=== PATIENT | male | born 1985 | race Caucasian/White ===

== ENCOUNTER 2019-11-25 00:29 | Emergency (ER) | payer MEDICAID, SELFPAY ==
[2019-11-25 00:30] VITALS: BP 159/102; PULSE 120; RESP 25; TEMP 36.9; O2SAT 98; BMI 25.6
--- NOTE | 2019-11-25 00:40 | ED.DCSUM_ITS ---
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 EMS was called. They did bag the patient and gave 2 doses of Narcan and patient woke up. Initially he refused transport but was unable to make a call due to his altered mental status and suspected narcotic overdose. The patient denies taking any narcotics. He denies any symptoms currently other than being thirsty. He denies any past medical history. Past Medical History - Allergies and Home Meds Allergies/Adverse Reactions: Allergies No Known Allergies Allergy (Verified 11/25/19 00:29) Primary Care Physician: Neville Webb MD [Primary Care Provider] - Prior records reviewed: Yes Past Medical History: None Surgical History: cholecystectomy Lives: With Family Smoking Status: Current every day smoker Alcohol: None Drugs: - - Patient denies but suspected narcotics Review of Systems General: Denies: Chills, Fever, Sweats Eyes: Denies: Visual changes - bilaterally, Diplopia ENT: Denies: Rhinorrhea, Sore throat Cardiovascular: Denies: Chest pain, Palpitations Respiratory: Denies: Dyspnea, Cough, Dyspnea on exertion Gastrointestinal: Denies: Abdominal pain, Nausea, Vomiting, Diarrhea, Melena, Hematochezia Genitourinary: Denies: Dysuria, Hematuria, Frequency Musculoskeletal: Denies: Back pain, Extremity Pain Skin: Denies: Rash, Wounds Neurological: Denies: Headache, Weakness, Numbness Physical Exam Vital Signs/Narrative: Vital Signs Temp Pulse Resp BP Pulse Ox 11/25/19 00:30 98.5 F 120 H 25 H 159/102 H 98 General: Well nourished, Well developed, No Acute Distress Head: Normocephalic, Atraumatic Eyes: Perrl, EOMI ENT: Moist mucous membranes, No rhinorrhea Neck: Supple, Nontender Cardiovascular: Regular rate, No murmurs, Tachycardia Respiratory: No distress, CTA bilaterally, Chest nontender Abdomen: Soft, Nontender, Nondistended, Normal bowel sounds Back: Nontender, Normal Inspection Extremities: Nontender, No edema Skin: Normal color, No rash Neurological: Alert, Oriented x3, Cranial nerves II-XII grossly intact, Normal Strength, Normal Sensation Psychological: Normal affect, Normal Mood Diagnostic/Tx/Re-eval - Medical Decision Making Monitored in the emergency department. I suspect he has a narcotic overdose. He resolved with Narcan. Patient was monitored for over an hour. He does not want to go to rehab. He has a history of narcotic use in the past. Family is at the bedside and he would like to be discharged. ED Disposition - Plan for ED Patient: Disposition: Home or Assisted Living Diagnosis: Narcotic overdose Instructions: OVERDOSE, Accidental (Adult), OVERDOSE, Opiate Referrals: Neville Webb MD [Primary Care Provider] -
[2019-11-25 01:38] VITALS: BP 140/105; PULSE 115; RESP 17; O2SAT 100
[2019-11-25 01:47] VITALS: BP 144/106; PULSE 115; RESP 15; O2SAT 99
== END 2019-11-25 01:51 | disposition home or self-care (01) ==
PROVIDERS: Emergency Provider Emergency Medicine; Family Provider Family Medicine; PCP Family Medicine
DX: T40.601A Poisoning by unspecified narcotics, accidental (unintentional), initial encounter (principal); Y92.9 Unspecified place or not applicable; F17.200 Nicotine dependence, unspecified, uncomplicated
CPT/HCPCS: 99284; J7030

== ENCOUNTER 2020-08-23 15:05 | Emergency (ER) | payer MEDICAID, SELFPAY ==
[2020-08-23 15:06] VITALS: BP 148/100; PULSE 84; RESP 14; TEMP 36.6; O2SAT 100; BMI 24.0
--- NOTE | 2020-08-23 16:31 | ED.VIS.GEN ---
History of Present Illness Chief Complaint: Abn Labs Informant: Patient, Family Onset: Days - 2 Narrative: Patient presents with family here for evaluation of jaundice noted 2 days ago. Denies abdominal pain nausea vomiting. 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 He does share needles. Denies fever. Urine is darker in color. Denies any landa stools. No previous similar symptoms. Asthma history of cholecystectomy. Prior similar symptoms: No Past Medical History - Allergies and Home Meds Allergies/Adverse Reactions: Allergies No Known Allergies Allergy (Verified 11/25/19 00:29) Primary Care Physician: Neville Webb MD [STAFF PHYSICIAN] - Past Medical History: - - IV drug abuse Surgical History: cholecystectomy Smoking Status: Current every day smoker Review of Systems General: Denies: Chills, Fever, Sweats Eyes: Denies: Visual changes - bilaterally, Diplopia ENT: Denies: Rhinorrhea, Sore throat Cardiovascular: Denies: Chest pain, Palpitations Respiratory: Denies: Dyspnea, Cough, Dyspnea on exertion Gastrointestinal: Denies: Abdominal pain, Nausea, Vomiting, Diarrhea, Melena, Hematochezia Genitourinary: Denies: Dysuria, Hematuria, Frequency Musculoskeletal: Denies: Back pain, Extremity Pain Skin: Reports: - - Jaundice. Denies: Rash, Wounds Neurological: Denies: Headache, Weakness, Numbness Physical Exam Vital Signs/Narrative: Vital Signs Temp Pulse Resp BP Pulse Ox 08/23/20 15:06 97.9 F 84 14 148/100 H 100 Inital Vital Signs reviewed: Yes General: Well nourished, Well developed, No Acute Distress Head: Normocephalic, Atraumatic Eyes: Perrl, EOMI, Scleral icterus ENT: Moist mucous membranes, No rhinorrhea Neck: Supple, Nontender Cardiovascular: Regular rate, Regular rhythm, No murmurs Respiratory: No distress, CTA bilaterally, Chest nontender Abdomen: Soft, Nontender, Nondistended, Normal bowel sounds. Negative for: Aparicio's sign Back: Nontender, Normal Inspection Extremities: Nontender, No edema Skin: No rash, Jaundice Neurological: Alert, Oriented x3, Cranial nerves II-XII grossly intact, Normal Strength, Normal Sensation Psychological: Normal affect, Normal Mood Diagnostic/Tx/Re-eval Clinical Impression(s) from Imaging Studies Abdomen Ultrasound 09/28/20 17:19 IMPRESSION: Enlarged fatty liver. Status post cholecystectomy. Dilated main portal vein. Trace perihepatic fluid. Electronically Signed: Jamie Jimenez DO at 18:55 EDT Tel [phone], Service support , Abnormal Lab Results 08/23/20 08/23/20 08/23/20 16:35 16:35 16:35 WBC 8.0 RBC 3.95 L Hgb 11.9 L Hct 34.9 L MCV 88.4 MCH 30.1 MCHC 34.1 RDW Std Deviation 58.1 H RDW Coeff of Marilynn 18.2 H Plt Count 366 MPV 11.2 Immature Gran % (Auto) 0.300 Neut % (Auto) 60.4 Lymph % (Auto) 22.8 [place] % (Auto) 14.5 H Eos % (Auto) 1.1 Baso % (Auto) 0.9 Absolute Neuts (auto) 4.8 Absolute Lymphs (auto) 1.82 Nucleated RBC % 0 PT 14.0 INR 1.1 Sodium 140 Potassium 3.8 Chloride 107 Carbon Dioxide 27.0 Anion Gap 6 BUN 11 Creatinine 0.94 Estim Creat Clear Calc 132.34 Est GFR (MDRD) Af Amer 118 Est GFR (MDRD) Non-Af 97 BUN/Creatinine Ratio 11.7 Glucose 101 Calcium 8.6 Total Bilirubin 12.90 H Direct Bilirubin 10.52 H AST 930 H ALT 1066 H Alkaline Phosphatase 350 H Total Protein 7.0 Albumin 2.8 L Globulin 4.2 Lipase 79 - Medical Decision Making Patient vital stable currently asymptomatic with symptoms he does have clinical jaundice symptoms. With his history concerns for hepatitis B or C with his IV drug history. I did check labs notes acute hepatitis with hyperbilirubinemia. Ultrasound of the liver obtained. There is no masses. Mild fatty liver. Trace perihepatic fluid, dilated main portal vein per radiology. Reevaluation patient updated on findings. Discussed cysts hepatitis panel is pending. Discussed he needs to call his PCP close follow-up for referral as needed. Discussed detox with the patient with sister in the room, he states he is not ready for this he is established with a 180 program. Strict signs and symptoms discussed to return. All questions were answered. ED Disposition - Plan for ED Patient: Disposition: Home or Assisted Living Diagnosis: Acute hepatitis, Hyperbilirubinemia, IV drug user Instructions: ED Hepatitis Viral Type Pending, Total Bilirubin Blood Referrals: Aylin Olson, PA [Primary Care Provider] - 3-5 Days
[2020-08-23 17:01] LABS: Absolute Lymphocyte Count 1.82 X10^3/uL (0.83-4.51); Absolute Neutrophil Count 4.8 X10^3/uL (2.0-7.7); Basophil# 0.07 X10^3/uL; Basophil% 0.9 % (0-1); Eosinophil# 0.09 X10^3/uL; Eosinophils% 1.1 % (0-5); Hematocrit 34.9 % (40-54); Hemoglobin 11.9 g/dL (13.0-16.5); Lymphocyte # 1.82 X10^3/ul (4.0); Lymphocyte % 22.8 % (19-41); Mean Corp Hgb Conc 34.1 g/dL (32-36); Mean Corpuscular Hgb 30.1 pg (27.0-32.0); Mean Corpuscular Volume 88.4 fL (80-94); Mean Platelet Vol. 11.2 fl (6.2-12.0); Monocyte# 1.16 X10^3/uL; Monocyte% 14.5 % (0-10); NRBC Flagged by Analyzer 0 % (0-5); Neutrophil # 4.83 X10^3/uL (2.7-7.7); Neutrophil % 60.4 % (47-70); Platelet Count 366 K/mm3 (150-450); RBC Distribution Width CV 18.2 % (11.6-14.6); RBC Distribution Width SD 58.1 fl (35.1-43.9); Red Blood Count 3.95 M/mm3 (4.6-6.2)
[2020-08-23 17:18] LABS: International Normalized Ratio 1.1
--- NOTE | 2020-08-23 17:19 | US_ITS ---
STUDY: ABDOMINAL ULTRASOUND - RIGHT UPPER QUADRANT REASON FOR VISIT: Male, 34 years old JAUNDICE X SEVERAL DAYS, HX OF CHOLECYSTECTOMY TECHNIQUE: Ultrasound evaluation of the right upper quadrant was performed with real-time and static landa-scale imaging. TECHNICAL QUALITY: Adequate. COMPARISON: None. FINDINGS: Liver: The liver measures 20.4 cm. There is fatty echogenicity of the liver. The bile ducts are within normal limits. There is hepatic color flow. The direction of portal flow is hepatopetal. There is no demonstrated mass lesion. Dilated main portal vein measuring 17 mm. Gallbladder: Status post cholecystectomy. Common Bile Duct (C.B.D.): The common bile duct is 3 mm. Pancreas: Limited visualization of the pancreas. Right Kidney: Normal size of the right kidney. The right kidney measures 12.4 x 6.0 x 4.7 cm. Normal renal cortex. The right cortex measures 1.0 cm. There is no demonstrated renal mass or cyst. There is no right hydronephrosis. Trace perihepatic fluid. US/Abdomen Limited IMPRESSION: Enlarged fatty liver. Status post cholecystectomy. Dilated main portal vein. Trace perihepatic fluid. Electronically Signed: Jamie Jimenez DO at 18:55 EDT Tel [phone], Service support ,
[2020-08-23 17:35] LABS: AST(SGOT) 930 U/L (15-37); Alanine Aminotransfer ALT/SGPT 1066 U/L (16-61); Albumin, Serum 2.8 g/dL (3.2-5.0); Alkaline Phosphatase 350 U/L (45-117); Anion Gap 6 (5-15); BUN 11 mg/dL (7-18); BUN/Creat Ratio 11.7 RATIO (10-20); Bilirubin, Direct 10.52 mg/dL (0.00-0.30); Calcium,Total 8.6 mg/dL (8.5-10.1); Chloride 107 mmol/L (98-107); Creatinine, Serum 0.94 mg/dL (0.70-1.30); EST Glomerular Filtration Rate 97 mL/min (>60); Est Glom Filt Rate - Afr Amer 118 mL/min (>60); Estimated Creatinine Clearance 132.34 ml/min; Globulin 4.2 g/dL (2.2-4.2); Glucose 101 mg/dL (74-106); Lipase 79 U/L (73-393); Potassium 3.8 mmol/L (3.5-5.1); Sodium Level 140 mmol/L (136-145)
[2020-08-23 18:38] VITALS: BP 140/95; PULSE 83; RESP 12; O2SAT 100
--- NOTE | 2020-08-23 19:58 | ED.RN ---
THIS NURSE WENT TO D/C THE PT AND HE WAS NOT IN THE ROOM OR IN THE DEPARTMENT. NO IV LAYING IN ROOM ANYWHERE. WILL CALL THE PT AND DETERMINE IF IV WAS D/C.
--- NOTE | 2020-08-23 20:01 | ED.RN ---
MESSAGE LEFT ON PT'S SISTER GIUSEPPE'S PHONE NOTIFYING HER THAT PT LEFT WITHOUT D/C PAPERS AND POTENTIALLY WITH IV IN PLACE.
[2020-08-25 12:07] LABS: Hepatitis A IgM Antibody Negative (Negative); Hepatitis B Core AB IgM Positive (Negative)
[2020-08-25 14:37] LABS: HEPATITIS B SURFACE AG Positive (Negative); Hep C Antibodies >11.0 s/co ratio (0.0-0.9)
== END 2020-08-23 20:01 | disposition home or self-care (01) ==
PROVIDERS: Emergency Provider Emergency Medicine; PCP Physician Assistant
DX: B17.9 Acute viral hepatitis, unspecified (principal); R17 Unspecified jaundice; F17.200 Nicotine dependence, unspecified, uncomplicated; J45.909 Unspecified asthma, uncomplicated; Z90.49 Acquired absence of other specified parts of digestive tract; F11.90 Opioid use, unspecified, uncomplicated
CPT/HCPCS: 76705; 80048; 80074; 80076; 83690; 85025; 85610; 99283; A4216

== ENCOUNTER 2020-08-25 22:48 | Emergency (ER) | payer MEDICAID, SELFPAY ==
[2020-08-25 22:49] VITALS: BP 149/91; PULSE 60; RESP 16; TEMP 36.1; O2SAT 100; BMI 25.2
--- NOTE | 2020-08-25 23:15 | ED.DCSUM_ITS ---
History of Present Illness Chief Complaint: Abn Labs Informant: Patient Narrative: Presents for follow-up. He had lab work drawn 2 days ago seen the emergency department by Dr. Horvath. It appeared he had an acute hepatitis with elevated bilirubin and liver function test. Viral testing was sent off and came palate came back positive for hepatitis B and C. The patient does do IV heroin and has shared needles and has been using daily for the last 6 months. He was clean for the last 4 years prior to this. He noticed over the last 7 days he became jaundiced. Patient was to follow-up with his family doctor. The patient's family did discuss the case with Dr. Jacobo he was supposed to follow-up with as an outpatient and urged to come to the emergency department for repeat evaluation. He denies any new symptoms. He has had been having dark-colored urine and jaylon colored stools due to his hepatitis acute flare. Patient had ultrasound done that showed no major abnormalities on his last visit 2 days ago. He is not having any nausea vomiting or diarrhea. He is not having any abdominal pain fevers or chills. The patient is homeless. Past Medical History - Allergies and Home Meds Allergies/Adverse Reactions: Allergies No Known Allergies Allergy (Verified 08/25/20 22:51) Primary Care Physician: Aylin Olson PA [Primary Care Provider] - Prior records reviewed: Yes Past Medical History: - - Venous drug abuse Surgical History: cholecystectomy Lives: Homeless Smoking Status: Current every day smoker Drugs: Heroin Review of Systems General: Denies: Chills, Fever, Sweats Eyes: Denies: Visual changes - bilaterally, Diplopia ENT: Denies: Rhinorrhea, Sore throat Cardiovascular: Denies: Chest pain, Palpitations Respiratory: Denies: Dyspnea, Cough, Dyspnea on exertion Gastrointestinal: Reports: - - See HPI. Denies: Abdominal pain, Nausea, Vomi ting, Diarrhea, Melena, Hematochezia Genitourinary: Denies: Dysuria, Hematuria, Frequency Musculoskeletal: Denies: Back pain, Extremity Pain Skin: Reports: - - Positive jaundice. Denies: Rash, Wounds Neurological: Denies: Headache, Weakness, Numbness Physical Exam Vital Signs/Narrative: Vital Signs Temp Pulse Resp BP Pulse Ox 08/25/20 22:49 97 F L 60 16 149/91 H 100 General: Well nourished, Well developed, No Acute Distress Head: Normocephalic, Atraumatic Eyes: Perrl, EOMI, Scleral icterus ENT: Moist mucous membranes, No rhinorrhea Neck: Supple, Nontender Cardiovascular: Regular rate, Regular rhythm, No murmurs Respiratory: No distress, CTA bilaterally, Chest nontender Abdomen: Soft, Nontender, Nondistended, Normal bowel sounds, No masses Back: Nontender, Normal Inspection Extremities: Nontender, No edema Skin: Normal color, No rash, Jaundice Neurological: Alert, Oriented x3, Cranial nerves II-XII grossly intact, Normal Strength, Normal Sensation Psychological: Normal affect, Normal Mood Diagnostic/Tx/Re-eval - Medical Decision Making Patient is resting comfortably stable in department with acute jaundice secondary to viral hepatitis. Discussed the case with on-call Dr. Charlton. The patient does not need to be evaluated in the emergency department. They feel that they can see the patient in the office to get viral load and discuss treatment. Patient will follow-up as an outpatient and in agreement ED Disposition - Plan for ED Patient: Disposition: Home or Assisted Living Diagnosis: Viral hepatitis Instructions: ED Hepatitis Viral Type Pending Referrals: Theodore Jacobo Jr., MD [HONORARY STAFF] -
== END 2020-08-26 00:02 | disposition home or self-care (01) ==
LOC: ED 23:51
PROVIDERS: Emergency Provider Emergency Medicine; PCP Physician Assistant
DX: B19.9 Unspecified viral hepatitis without hepatic coma (principal); F17.200 Nicotine dependence, unspecified, uncomplicated; Z59.0 Homelessness
CPT/HCPCS: 99282

== ENCOUNTER 2021-01-21 17:28 | Emergency (ER) | payer MEDICAID, SELFPAY ==
[2021-01-21 17:29] VITALS: BP 174/102; PULSE 90; RESP 15; TEMP 35.8; O2SAT 100; BMI 25.9
--- NOTE | 2021-01-21 17:34 | ED.VIS.GEN ---
History of Present Illness Chief Complaint: General Illness Informant: Patient Onset: Weeks - Wound distal dorsal central left forearm x2 weeks Context: Sudden Onset Timing: Continuous Quality: Eschar Location: Left forearm as previously described Current Severity: Mild Maximum Severity: Mild Worsened by: Nothing Relieved by: Nothing Associated Symptoms: No constitutional symptoms, drainage, redness etc. Narrative: Patient is a 35-year-old [id number] male who presents for wound check. He denies injecting himself at the site. He states his girlfriend had to be admitted for MRSA infection. He denies fever, chills night sweats. He denies redness, drainage, red streak soreness to left elbow or axilla. He is not diabetic. He is on no immunosuppressive meds. He denies HIV. He does admit to IV drug use. Prior similar symptoms: No Recent Illness/Hospitalization: No - Past Medical History (1) IVDU (intravenous drug user) Status: Acute Past Medical History - Allergies and Home Meds Allergies/Adverse Reactions: Allergies No Known Allergies Allergy (Verified 01/21/21 17:31) Primary Care Physician: Aylin Olson PA [Primary Care Provider] - Prior records reviewed: Yes Surgical History: cholecystectomy Lives: Spouse/ Significant Other Smoking Status: Current every day smoker Alcohol: Occasional Drugs: - - The drug use Review of Systems General: Denies: Chills, Fever, Malaise, Subjective Eyes: Denies: Visual changes - bilaterally, Blurred Vision - bilaterally Cardiovascular: Denies: Chest pain, Palpitations Respiratory: Denies: Dyspnea, Dyspnea on exertion Gastrointestinal: Denies: Nausea, Vomiting, Diarrhea Musculoskeletal: Denies: Myalgias, Arthralgias, Swelling, Extremity Pain Skin: Reports: Wounds. Denies: Rash Neurological: Denies: Headache Hematologic: Denies: Easy bruising, Easy bleeding Physical Exam Vital Signs/Narrative: Vital Signs Temp Pulse Resp BP Pulse Ox 01/21/21 17:29 96.5 F L 90 15 174/102 H 100 Inital Vital Signs reviewed: Yes General: Well nourished, Well developed, No Acute Distress Head: Normocephalic, Atraumatic Eyes: Perrl, EOMI. Negative for: Pale conjunctiva, Scleral icterus Cardiovascular: Regular rate, Regular rhythm, No murmurs, Normal S1, Normal S2 Respiratory: No distress, CTA bilaterally Extremities: Nontender, No edema, - - Has eschar central distal dorsal left wrist that is 4 mm in diameter. There is no warmth, induration, fluctuance, lymphangitis and there is no epitrochlear or axillary lymphadenopathy. Skin: Normal color, No rash, Trauma. Negative for: Cyanosis, Diaphoresis, Jaundice Neurological: Alert, Oriented x3, Cranial nerves II-XII grossly intact, Normal Strength, Normal Sensation, Normal Gait Psychological: Normal affect Diagnostic/Tx/Re-eval - Medical Decision Making Patient has a healing wound without evidence of infection. He was informed there is no concern for infection therefore there is no concern for MRSA. Patient was discharged with appropriate home-going instructions. ED Disposition - Plan for ED Patient: Disposition: Home or Assisted Living Diagnosis: Wound, open, forearm Instructions: ED Skin Avulsion Referrals: Aylin Olson PA [Primary Care Provider] - As Needed
== END 2021-01-21 18:00 | disposition home or self-care (01) ==
LOC: ED 17:52
PROVIDERS: Emergency Provider Emergency Medicine; PCP Physician Assistant
DX: Z48.00 Encounter for change or removal of nonsurgical wound dressing (principal); F19.90 Other psychoactive substance use, unspecified, uncomplicated; F17.200 Nicotine dependence, unspecified, uncomplicated; Z90.49 Acquired absence of other specified parts of digestive tract
CPT/HCPCS: 99282

== ENCOUNTER 2021-05-04 12:13 | Emergency (ER) | payer MEDICAID, SELFPAY ==
[2021-05-04 12:14] VITALS: BP 151/94; PULSE 97; RESP 15; TEMP 35.8; O2SAT 99; BMI 27.5
[2021-05-04 12:16] VITALS: BP 151/94; PULSE 97; RESP 15; TEMP 35.8; O2SAT 99
--- NOTE | 2021-05-04 12:30 | RAD_ITS ---
STUDY: X-RAY - LEFT ANKLE REASON FOR EXAM: Left ankle pain began this morning, swelling. TECHNIQUE: 3 view(s) of the ankle. COMPARISON: None. FINDINGS: Normal visualized distal tibia and fibula. Normal medial and lateral malleoli. Normal tibiotalar articulation and ankle mortise. Normal visualized talus and calcaneus. There is a small os trigonum. There is a very small corticated fragment adjacent to the lateral talar process. The visualized subtalar, talonavicular, calcaneocuboid and tarsal articulations are normal. There is soft tissue swelling. RAD/Ankle min 3 Views IMPRESSION: Soft tissue swelling. Very small corticated fragment adjacent to the lateral talar process, possibly from remote injury without demonstrated acute fracture. Electronically Signed: Nimesh Xavier MD at 13:08 EDT Tel , Service support ,
--- NOTE | 2021-05-04 13:22 | EDS_ITS ---
HPI History of Present Illness Chief Complaint: Lower Extremity Injury Informant: patient Onset/Context/Timing Onset: Today Context: Sudden Onset Timing: Continuous Quality of Pain: Sharp Location: Left ankle Worsened by: Movement, weightbearing, and ambulation Relieved by: Rest Associated Symptoms Associated Symptoms: Positive for Parasthesia; Negative for Weakness Narrative Narrative: Patient presents with pain, redness, and swelling over the left ankle that began this morning. Patient denies any trauma or injury. Patient states he was walking to get a cup of coffee when his friend noticed the swelling. Patient states he has been having some pain with movement and weightbearing. Patient describes his pain is sharp. Patient admits to some tingling and paresthesias. Patient denies any weakness. Patient states his last tetanus was up-to-date. Tetanus Immunization: <5 years [facility] Medical History Hepatitis Substance use Home Medications cephalexin 500 mg PO Q6 #40 capsule 05/04/21 [Rx Last Taken Unknown] Allergy/AdvReac Type Severity Reaction Status Date / Time No Known Allergies Allergy Verified 05/04/21 12:16 no surgical history Social History Smoking Status: Current every day smoker tobacco type: cigarettes ROS ROS ED Constitutional Constitutional ED: Denies chills or fever(s) Eyes Eyes: Denies blurry vision or change in vision ENT ENT ED: Denies rhinorrhea or sore throat Cardiovascular Cardiovascular: Denies chest pain or palpitations Respiratory/Chest Respiratory/Chest: Denies cough or dyspnea Gastrointestinal Gastrointestinal: Denies nausea or vomiting Genitourinary Genitourinary ED: Denies dysuria or hematuria Musculoskeletal Musculoskeletal: Denies back pain or neck pain Integumentary Reports rash; Denies abscess Neurologic Neurologic: Reports paresthesias; Denies headache(s) or weakness Allergic/Immunologic Allergic/Immunologic ED: Denies mouth swelling or urticaria EXAM Physical Exam Const Vital Signs: 05/04/21 12:14 05/04/21 12:16 Temperature 96.5 F L 96.5 F L Temperature Source Temporal Temporal Pulse Rate 97 97 Respiratory Rate 15 15 Blood Pressure 151/94 H 151/94 H Blood Pressure Mean 113 113 Pulse Ox 99 99 Oxygen Delivery Method Room Air Room Air Positive well nourished and well developed General Appearance ED: well developed Neck full ROM and supple Extremity Extremity Narrative: There is tenderness, erythema, edema, and warmth over the lateral aspect of the left ankle and some mild erythema, edema, and warmth over the dorsal aspect of the left foot. There is no bleeding. There is no abscess formation. There is no calf tenderness. Range of motion of the left ankle was limited in all motion secondary to pain. Sensation was intact to light touch in all digits. Pedal pulses are equal bilaterally. Capillary refill was less than 2 seconds in all digits. Sensation was intact to light touch in all digits. Neuro oriented x3, CN's II-XII intact bilaterally, moves all extremities and no sens ory deficits noted Sensorium / Orientation: alert Motor Exam: strength 5/5 throughout Psych mental status grossly normal MDM MDM MDM Narrative Medical decision making narrative: X-rays of the left ankle were obtained. There are 3 views. On my interpretation, there is no acute fracture. There is an old avulsion fracture lateral to the talus. There is no dislocation. There is some mild soft tissue swelling. Radiologist also interpreted the x-rays and agrees. Patient was given a dose of Keflex here. Patient was given a prescription for Keflex. Patient was instructed to keep the leg elevated. Patient was instructed to follow-up with his primary care physician in 3 to 5 days. Patient understood and was agreeable with the plan. All questions were answered. Radiography Diagnostic Testing: Radiology Impression Ankle X-Ray 05/04/21 12:30 IMPRESSION: Soft tissue swelling. Very small corticated fragment adjacent to the lateral talar process, possibly from remote injury without demonstrated acute fracture. Electronically Signed: Nimesh Xavier MD at 13:08 EDT Tel , Service support , Discharge Plan Triage Chief Complaint: Lower Extremity Injury ED Provider: David Olivarez Dx/Rx/DC Orders Clinical Impression: Cellulitis of left ankle Instructions: ED Cellulitis Prescriptions: New cephalexin [cephalexin] 500 MG capsule 500 mg PO Q6 Qty: 40 RF: 0 Primary Care Provider: Aylin Olson Referrals: Aylin Olson PA [Primary Care Provider] - 3-5 Days Disposition Disposition: Home, self care
[2021-05-04] MEDS: Cephalexin 500 MG Capsule PO (13:42)
[2021-05-04] MEDS: Acetaminophen 500 MG Tablet 1000 MG PO (13:42)
[2021-05-04 13:44] VITALS: BP 137/98; PULSE 61; RESP 12; O2SAT 99
== END 2021-05-04 13:45 | disposition home or self-care (01) ==
PROVIDERS: Emergency Provider Emergency Medicine; PCP Physician Assistant
DX: L03.116 Cellulitis of left lower limb (principal); F17.210 Nicotine dependence, cigarettes, uncomplicated
CPT/HCPCS: 73610; 99283

== ENCOUNTER 2025-06-09 23:50 | Inpatient (IN) | payer MEDICAID, SELFPAY ==
[2025-06-09 23:51] VITALS: BP 174/125; BP 181/118; PULSE 126; PULSE 131; RESP 22; TEMP 36.6; O2SAT 98; BMI 26.2
[2025-06-10] VITALS (10 sets, daily range): BP systolic 144–184; BP diastolic 100–114; PULSE 100–113; RESP 16–18; TEMP 36.8–37.4; O2SAT 99–100; BMI 26.4
--- OUTSIDE RECORDS SUMMARY | 2025-06-10 00:06 | XMS RPT_ITS | CCD ---
Author Organization [facility] Care Team Providers [facility] Aide Name Role Phone DEMETRIA SANDEEP Unavailable Unavailable Randi OLSON Unavailable Unavailable Aylin Olson PA-C Primary Care Provider Unavailable Primary Care Provider Unavailabl e CHERRIE BAHENA Attending Unavailable CHERRIE BAHENA Attending Unavailable CHERRIE BAHENA Attending Unavailable CHERRIE BAHENA Attending Unavailable Medications Current Medications Medication Drug Class(es) Dates Sig (Normalized) Sig (Original) buprenorphine 8 mg / naloxone 2 mg sublingual film (20 sources) Partial Opioid Agonist, Opioid Antagonist Start: 04-30-2024 buprenorphine-nalo xone (Suboxone) 8-2 MG per sublingual film Indications: Opioid type dependence, continuous (HCC) Place 1 Film under the tongue 2 times daily. 18 Film 04/30/2024 Active erythromycin 0.005 mg/mg ophthalmic ointment (1 source) Macrolide, Macrolide Antimicrobial Start: 03-21-2022 End: 03-28-2022 erythromycin (ROMYCIN) 5 mg/gram (0.5 %) ophthalmic ointment Use 1 application in the left eye three times daily for 7 days. 3.5 g 0 03/21/2022 03/28/2022 Active Comment on above: Use 1 application in the left eye three times daily for 7 days. Completed/Discontinued Medications Medication Drug Class(es) Dates Sig (Normalized) Sig (Original) 24 hr buPROPion hydrochloride 150 mg extended release oral tablet (3 sources) Aminoketone Start: 12-09-2019 take 1 tablet by mouth once daily buPROPion XL (WELLBUTRIN XL) 150 mg 24 hr tablet Indications: Anxiety and depression , IV drug user Take 1 tablet by mouth once daily. 30 tablet 5 12/09/2019 Active Comment on above: Take 1 tablet by ashia th once daily. Calcium Carbonate (3 sources) CALCIUM CARBONAT E (TUMS ORAL) Take 2-4 tablets by mouth as needed. 0 Active Comment on above: Take 2-4 tablets by mouth as needed. omeprazole 20 mg delayed release oral capsule (4 sources) Proton Pump Inhibitor Start: 12-09-2019 End: 02-20-2022 take 1 capsule by mouth twice daily omeprazole (PRILOSEC) 20 mg capsule Indications: GERD without esophagitis , IV drug user Take 1 capsule by mouth twice daily. 90 capsule 1 02/21/2022 Active Comment on above: Take 1 capsule by mo uth twice daily. traZODone hydrochloride 50 mg oral tablet (3 sources) Serotonin Reuptake Inhibitor Start: 12-09-2019 take 1 tablet by mouth once daily at bedtime traZODone (DESYREL) 50 mg tablet Indications: Anxiety and depression , IV drug user Take 1 tablet by mouth daily at bedtime. 30 tablet 5 12/09/2019 Active Comment on above: Take 1 tablet by ashia th daily at bedtime. Problems Active Problems Problem Classification Problem Date Documented Date Episodic/Chronic Blindness and vision defects (1 source) Blurring of visual image; Translations: [Other visual disturbances] Episodic Calculus of urinary tract (3 sources) Kidney stone; Translations: [Calculus of kidney] 12-13-2016 Episodic Esophageal disorders (1 source) Gastroesophageal reflux disease without esophagitis; Translations: [Gastro-esophageal reflux disease without esophagitis] Chronic Other eye disorders (1 source) Edema of cornea of left eye; Translations: [Unspecified corneal edema] Episodic Substance-related disorders (20 sources) Continuous opioid dependence; Translations: [Opioid dependence, uncomplicated] Onset: 05-14-2024 Resolved: 09-17-2024 04-30-2024 Chronic Substance-related disorders (1 source) Intravenous drug user; Translations: [Other psychoactive substance use, unspecified, uncomplicated] Episodic Superficial injury; contusion (1 source) Abrasion of left cornea; Translations: [Injury of conjunctiva and corneal abrasion without foreign body, left eye, initial encounter] Episodic Past or Other Problems Problem Classification Problem Date Documented Da te Episodic/Chronic Immunizations and screening for infectious disease (3 sources) Positive measurement finding; Translations: [Nonspecific reaction to tuberculin skin test without active tuberculosis] Onset: 06-10-2018 06-10-2018 Episodic Skin and subcutaneous tissue infections (6 sources) Abscess; Translations: [Cutaneous abscess, unspecified] Onset: 07-01-2013 07-01-2013 Episodic Results Test Name Value Interpretation Reference Range Facility 36on 09-17-2024 36 talked with Matt, advised script called in on 09/13 for bridge supply to today; advised to go to [facility] as it's closer; note in chart Received: Today Cherrie Bahena, ANTWAN - ROSA ISELA Davison Caller: Unspecified (Today, 2:22 PM) [facility] 36 Name of Caller: Jace stevens Contact Reason for Appointment: Pt states has in office appointment today 09/17/24 at 2:30 pt is unable to come in an hour away and homeless. Pt states there was a mistake in last appointment and Cherrie was going to call in medication and never did. Pt is very sick. Pt is asking if can do a VV and able to make it by 4:00 for drop if that is what is needed. Spoke with backline Cherrie will call pt. FYI Office Name: Behavioral Health Medication Refills need, if any: n/a Medication Name: nA [facility] Progress Noteon 09-17-2024 Progress Note September 17, 2024 Phone Contact Scheduled for office visit today; called 30 prior to scheduled time to say he could not find transportation. Last in office visis in April & June; Missed May, July & visit scheduled for September 10 & now, September 17 (4 office visits) Refills for Suboxone phoned in several times to [facility] / [place]; at one point, he insisted on flim over pills which raises some concern. Refill for # 12 Subxone films called in to [facility] on September 13 to bridge to this appointment (Sep 17) Prior script phoned on Aug 15, # 70 suboxone films prescribed. In talking with him today, he tells me he did not receive the # 12 films, apparently was waiting for [facility] to alert him (??). We discussed the difficulties getting transportation to be seen here in office; that virtual/phone visits can be arranged ONLY after several months of compliance with treatment program and in office visits/tox screens. Informed that I would not be able to continue seeing him for MAT Recommended he be seen at [facility] for continued MAT with Dr Esquivel; Offered to provide contact number, but he reports he knows where [facility] is located, Advised that suboxone script should be waiting at [facility], which will bridge till he sees staff at [facility]. Will inform our geological technical officer/coordinator to proceed with sending letter. Cherrie Bahena APRN [facility] Progress Noteon 09-13-2024 Progress Note September 13, 2024Sunday Phoned to [facility] SBXNE 8/2mg; Film # 12: NO R: Si in am/1/2 in patrica Bridge to next OFFICE Appointment; NOTE: Transportation is an issue; if unable to make next office devyn't. September 17, he will need to arrange f/up care at [address] [place] [address], which is closer to home Cherrie Bahena APRN [facility] 36on 09-12-2024 36 Ordering provider: Cherrie YOU Date of last office visit: 08.13.24 Date of next office visit: 09.17.24 Updated/Validated preferred pharmacy: Yes Patient instructed to contact the pharmacy prior to picking up the medication: Yes (1) Medication name: buprenorphine-naloxone (Suboxone) 8-2 MG per sublingual film Medication dosage: 8-2 mg (Miligrams Monthly quantity needed: 15 How many day supply requestin days Medication route: oral (PO) Medication administration time(s): 2.5 daily If taking medication PRN, reason for taking medication: N/A If this is a controlled substance do you receive this or any other controlled medication from any other doctor or facility: No Date of last refill (see medication tab): 04.30.24 PT STATES THAT HE NEEDS FILM & NOT TABLET. PT STATES HE TAKE 2.5 DAILY [facility] 36on 09-10-2024 36 Ordering provider: Cherrie Bahena Date of last office visit: 08.13.24 Date of next office visit: 09.17.24 Updated/Validated preferred pharmacy: Yes Patient instructed to contact the pharmacy prior to picking up the medication: Yes (1) Medication name: buprenorphine-naloxone (Suboxone) 8-2 MG per sublingual film Medication dosage: 8-2 mg (Miligrams Monthly quantity needed: 15 How many day supply requestin days Medication route: oral (PO) Medication administration time(s): 2.5 daily If taking medication PRN, reason for taking medication: N/A If this is a controlled substance do you receive this or any other controlled medication from any other doctor or facility: No Date of last refill (see medication tab): 04.30.24 PT STATES THAT HE NEEDS FILM & NOT TABLET. PT STATES HE TAKE 2.5 DAILY [facility] 36on 08-15-2024 36 Left message for patient at [phone] number give to call patient at when called [phone]. Provider informed pharmacy to switch medication to films. [facility] Progress Noteon 08-15-2024 Progress Note Aug 15, 2024; Matt called to report script was incorrectly ordered for tabs; unable to take tabs Pharmacy called to change: To [facility] pharmacy/[place] [phone]: Suboxone 8/2mg strips # 70 NO R Si strips in am; 1/2 in PM Cherrie Bahena APRN [facility] 36on 08-14-2024 36 Name of caller: Jace rodney Contact phone number: [phone] Relationship to Patient: patient Provider: Cherrie Bahena APRN Practice: [facility] Chief Complaint/Reason for Call: Matt stated the script for buprenorphine-naloxone (Suboxone) 8-2 MG per sublingual film was filled, but was filled with tablets instead of film. Please correct script with pharmacy or call Matt to advise. Best time of day caller can be reached: Any Patient advised that office/PCP has 24-48 business hours to return their call: No [facility] PATINSon 08-13-2024 PATINS Return August for T ox screen in office visit [facility] Progress Noteon 08-13-2024 Progress Note NAME: Matt Matt 1985 Date: Aug 13, 2024 Fourth Visit PHONE VISIT: [phone] (inlaw's #) Reason for Visit: Outpatient followup for MAT & addiction Counseling Diagnosis: Opiate Dependence in Remission Status since last Visit: Reports compliant with medications: 16mg suboxone in am; 4mg in pm ( 20mg / day) Positives: living with mother in law; helping with house upkeep; 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 Good relationship with long time partner: CURRENTLY, FAMILY GRIEVING DUE TO HER FA'S ; PREPARING TO GO TO [place] No job yet; 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; needs year of Recovery before 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 Reports NO illicit substance use since last visit Stress: much less, other than employment Currently family crisis with Recovery: Attending Sunday AA Meeting/weekly ROS: did not review completely as he was helping mother in law with planning EXAM: Alert, Oriented x 4, coherent, lucid Euthymic Mood; grateful affect NO evidence of suicidality or depression Cognitions: clear mentation; lucid Psych: maintained eye contact; speech even; Plan: Continue suboxone 8mg sbxone tabs: 2 in am; 1/2 in pm Begin [place] tabs/colace/PRN dulcolax Next Visit: September 10 in office with tox screen collection Advised to OTC: dulcolax PRN, Senna bid Metamucil DAILY Suppository PRN Labs: Med Ass't Panel: + sbxne To [facility] pharmacy/[place] [phone]: Suboxone 8mg tabs: # 70 NO R Si tabs in am; 1/2 in PM Cherrie Bahena APRN Patient was identified and seen today via Telehealth by agreement and consent. I used the following Telehealth technology: Audio capability only. Total length of call 10 minutes. The patient was offered and advised video for a more comprehensive evaluation, but the patient declined or was unable to use video. Patient location: Patient Location: Home. This patient encounter is appropriate and reasonable under the circumstances: transportation issues . The patient has been advised of the potential risks and limitations of this mode of treatment (including but not limited to the absence of in-person examination) and has agreed to be treated in a remote fashion in spite of them. Any and all of the patient's/patient's family's questions on this issue have been answered and I have made no promises or guarantees to the patient. The patient has also been advised to contact this office for worsening conditions or problems, and seek emergency medical treatment and/or call 911 if the patient deems either necessary. The patient stated that they are currently in the [facility]. If the patient is a minor, permission has been obtained by the parent or guardian for the patient to receive medical care at this visit. Normal [facility] MEDICATION ASSISTED TREATMEN T PANELOrdered By: Linette Vu on 07-09-2024 Amphetamines Ql (U) Negative Negative [facility] Barbiturates screen method Nom (U) Negative Negative [facility] Benzodiazepines screen method Nom (U) Negative Negative [facility] BUPRENORPHINE SCREEN Positive Negative [facility] Cocaine Ql (U) Negative Negative [facility] th Ethanol [Mass/Vol] Negative Negative [facility] FENTANYL Negative Negative [facility] Methadone Ql (U) Negative Negative [facility]th Opiates Screen Ql (U) Negative Negative [facility] OXYCODONE/OXYMORPHON E Negative Negative [facility] PCP Negative Negative [facility] THC Negative Negative [facility] The expected value f or the drugs listed above is Negative. The following drugs or drug groups have been screened for by Immunoassay at the following thresholds: Amphetamine class(1000ng/mL) Barbituates(200ng/mL) Benzodiazepines(200ng/ mL) Cocaine(300ng/mL) Ethanol (50 ng/mL) Methadone(300ng/mL) Opiates(300ng/mL) Oxycodone(100ng/mL) PCP(25ng/mL) Buprenorphine(5ng/mL) THC(50ng/mL) Fentanyl(1ng/mL) Positive results are NOT confirmed by a more specific alternative method unless requested. If confirmation is needed, request confirmation under separate order. NOTE: These results are for medical treatment only. Analysis performed using non-forensic procedures. [facility] MEDICATION ASSISTED TREATMEN T PANELon 07-09-2024 Amphetamines Ql (U) Negative Normal Negative [facility] Comment on above: Performed By: #### L [id number] ####Mid Level Game Designer: ADÁN DEAL ([id number])[facility] [place] [address] BARBITURATES Negative Normal Negative [facility] Comment on above: Performed By: #### L [id number] ####Mid Level Game Designer: ADÁN DEAL ([id number])[facility] [place] [address] Benzodiazepines Ql (U) Negative Normal Negative [facility] Comment on above: Performed By: #### L [id number] ####Mid Level Game Designer: ADÁN DEAL ([id number])[facility])[address] [place] [address] BUPRENORPHINE SCREEN Positive Normal Negative [facility] Comment on above: Performed By: #### L [id number] ####Mid Level Game Designer: ADÁN DEAL ([id number])[facility] [place] [address] Cocaine Ql (U) Negative Normal Negative [facility] Comment on above: Performed By: #### L [id number] ####Mid Level Game Designer: ADÁN DEAL ([id number])[address] ETHANOL-ETOHO Negative Normal Negative [facility] Comment on above: Result Comment: DELVIS Man COMMENTS: The expected value for the drugs listed above is Negative. The following drugs or drug groups have been screened for by Immunoassay at the following thresholds: Amphetamine class(1000ng/mL) Barbituates(200ng/mL) Benzodiazepines(200ng/mL) Cocaine(300ng/mL) Ethanol (50 ng/mL) Methadone(300ng/mL) Opiates(300ng/mL) Oxycodone(100ng/mL) PCP(25ng/mL) Buprenorphine(5ng/mL) THC(50ng/mL) Fentanyl(1ng/mL) Positive results are NOT confirmed by a more specific alternative method unless requested. If confirmation is needed, request confirmation under separate order. NOTE: These results are for medical treatment only. Analysis performed using non-forensic procedures. Performed By: #### L [id number] ####Mid Level Game Designer: ADÁN DEAL ([id number])[facility])[address] [place] [address] FENTANYL Negative Normal Negative [facility] Comment on above: Performed By: #### L [id number] ####Mid Level Game Designer: ADÁN DEAL ([id number])[facility])[address] [place] [address] Methadone Ql (U) Negative Normal Negative [facility] Comment on above: Performed By: #### L [id number] ####Mid Level Game Designer: ADÁN DEAL ([id number])[facility])[address] [place] [address] Opiates Ql (U) Negative Normal Negative [facility] Comment on above: Performed By: #### L [id number] ####Mid Level Game Designer: ADÁN DEAL ([id number])[facility])[address] [place] [address] OXYCODONE/OXYMORPHON E Negative Normal Negative [facility] Comment on above: Performed By: #### L [id number] ####Mid Level Game Designer: ADÁN DEAL ([id number])[facility] [place] [address] PCP Negative Normal Negative [facility] Comment on above: Performed By: #### L [id number] ####Mid Level Game Designer: ADÁN DEAL ([id number])[facility] [place] [address] THC-MTTHC Negative Normal Negative [facility] Comment on above: Performed By: #### L [id number] ####Mid Level Game Designer: ADÁN DEAL ([id number])[facility])[address] [place] [address] Office Visiton 07-09-2024 Follow-up visit [id number] Matt Matt 1985 M Date Provider Department Center 07/09/2024 [id number], [facility] ACD- None No family history on file Level of Service:90382 MA OFFICE/OUTPATIENT ESTABLISHED MOD MDM 30 MIN Reason for Visit and Comments: Drug Problem [37] - Opiate dependence in remission Normal [facility] Progress Noteon 07-09-2024 Progress Note NAME: Matt Matt 1985 Date: July 09, 2024 Third Visit (missed May visit due to scheduling conflct) Reason for Visit: Outpatient followup for MAT & addiction Counseling Diagnosis: Opiate Dependence in Remission Status since last Visit: Doing well; compliant with medications Positives: living with mother in law; helping with house upkeep Good relationship with long time partner Good relationship with their oldest 2: Alison (22); Shiv (20) Very happy that he's mended things with mom; needs her support and is now able to see young dtr No job yet; 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; needs year of Recovery before return to former employer Reports NO illicit substance use in past 2 months; UTOX: negative Stress: much less, other than employment constipation Recovery: Attending Sunday AA Meeting/weekly Consumption: Denies use or near occasions ROS: c/o opiate induced constipation with subsequent discofomfort' EXAM: Alert, Oriented x 4, coherent, lucid Euthymic Mood; pleasant affect; tearful at times NO evidence of suicidality or depression Casually dressed; good hygiene Neuro: no issues evident Skin: warm/dry; no lesions; Eyes: clear Respirs: even/non labored Abdomen: NO distention Mus/SK: full ROM; gait stable; strong U & L limbs Cognitions: clear mentation; lucid Psych: maintained eye contact; speech even; Plan: Continue suboxone 8mg bid Begin [place] tabs/colace/PRN dulcolax Next Visit: August 13 PHONE VISIT 2PM Advised to OTC: dulcolax PRN, Senna bid Metamucil DAILY Suppository PRN Labs: Med Ass't Panel collected today; To [facility] pharmacy/[place] [phone]: Suboxone 8mg tabs: # 72 NO R [facility] 36on 06-27-2024 36 LVM Provider states patient can be scheduled for 07/09/2024 and will send 10 day rx until appointment. Secure chat sent. Hi, this patient needs to come in, can he come in 07/02/24 at 1pm? he will be out of meds and he missed his last appt it shows you in-patient at 1pm 18 mins JAGRUTI Bahena APRN - ROSA ISELA Not on 07/02; ask him if 07/09 would work; I will phone script in for a 10 day supply (06/30 - 07/09) [facility] 36 Reached out to pelon man, patient left for call back [phone] . Number is daughters and she was at work, stated she would call her mom to see if she could have patient return call. Cherrie Kim has openings Sunday. Patient missed 06/18/24 appt will need to go to ED for daily dosing or message to Cherrie can be sent. [facility] Progress Noteon 06-27-2024 Progress Note Script called to [facility] pharmacy for Suboxone 8/2 mg films # 28; No Refill; Next office devyn't on Jul 09. Cherrie Bahena [facility] 36on 06-25-2024 36 Name of Caller: Jace Begumley Contact Reason for Appointment: Pt called in regards to scheduling an appointment . Pt missed the last appointment scheduled on 06/18/2024. Pt will be out of the Suboxone medication on 06/30/2024 and would like to schedule an appointment before then. Pt stated that the phone number in the chart is currently not working and is requesting that you call the daughter Soni's phone at [phone] and leave a message. . Pt is requesting a call back to schedule please advise. Office Name: Behavioral health Medication Refills need, if any: Yes Medication Name: Suboxone [facility] 36on 05-28-2024 36 Called pt- straight to voicemail and inbox full. [facility] 36 Called pt- straight to voicemail, inbox full. Unable to leave message. If pt calls back please see TE from 05/27/24 for message to release to pt. [facility] 36on 05-27-2024 36 Name of caller: Jace Matt Contact phone number: [phone] Relationship to Patient: patient Provider: Cherrie Bahena [facility] Practice: [facility] location Chief Complaint/Reason for Call: 05/27/24 Pt asking for refill medication buprenorphine-naloxone (Suboxone) 8-2 MG per sublingual film Pt stated CANNOT have tablets on this medication pt would like a call back to discuss pls advise Best time of day caller can be reached: AM Patient advised that office/PCP has 24-48 business hours to return their call: Yes [facility] 36 Called pt- no answer and voicemail box full. [facility] Progress Noteon 05-27-2024 Progress Note Script phoned to [facility] [phone] for # 60 subxne films 8/2mg # 60; NO R; Next office devyn't on June 18, 2024 [facility] 36on 05-26-2024 36 S: Patient spoke wit h ALAN nurse regarding medication refill- Withdrawal symptoms B: Medication: buprenorphine-naloxone (Suboxone) 8-2 MG A: Pt calling in asking for the tablets to be changed to sublingual film, states unable to take tablets. Patient called in last week. Pt c/o aches, pains, constipation. Did have very small BM yesterday with some bleeding. States pharmacy needs approval to switch to the film. CAC nurse called pharmacy to clarify all that is needed. 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 He states he called the office last week and has not heard back. CAC nurse asked about patient's medications for his bowel and he states that he has everything on hold until clarified. R: CAC nurse sent message to mason tender provider via secure chat. Per Dr Bay, All I can do is call it for one day till he get in hold of her tomorrow, Called in 2 films till tomorrow. CAC nurse called patient and notified provider called medication to pharmacy to get through until tomorrow. Patient was thankful and stated he will get a ride to the pharmacy. Reason for Disposition Questions or concerns about substance use (drug use), unhealthy drug use, intoxication, or withdrawal Requesting admission for substance use (drug use), addiction, or withdrawal Protocols used: Alcohol Use and Fhlxlecj-GLXOU-RL, Substance Use and Lxzikpbs-PGVIS-GP [facility] Medication Assisted Treatmen t Panel (MATP)Ordered By: Trinidad Alexander on 05-15-2024 Amphetamines Ql (U) Negative Negative [facility] Barbiturates screen method Nom (U) Negative Negative [facility] Benzodiazepines screen method Nom (U) Negative Negative [facility] BUPRENORPHINE SCREEN Positive Negative [facility] Cocaine Ql (U) Negative Negative [facility] Ethanol [Mass/Vol] Negative Negative [facility] FENTANYL Negative Negative [facility] Methadone Ql (U) Negative Negative [facility] Opiates Screen Ql (U) Negative Negative [facility] OXYCODONE/OXYMORPHON E Negative Negative [facility] PCP Negative Negative [facility] THC Negative Negative [facility] The expected value f or the drugs listed above is Negative. The following drugs or drug groups have been screened for by Immunoassay at the following thresholds: Amphetamine class(1000ng/mL) Barbituates(200ng/mL) Benzodiazepines(200ng/ mL) Cocaine(300ng/mL) Ethanol (50 ng/mL) Methadone(300ng/mL) Opiates(300ng/mL) Oxycodone(100ng/mL) PCP(25ng/mL) Buprenorphine(5ng/mL) THC(50ng/mL) Fentanyl(1ng/mL) Positive results are NOT confirmed by a more specific alternative method unless requested. If confirmation is needed, request confirmation under separate order. NOTE: These results are for medical treatment only. Analysis performed using non-forensic procedures. [facility] 36on 05-14-2024 36 S: Patient spoke wit h CAC nurse regarding Medication clarification B: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 Oriented x3, Cranial nerves II-XII grossly intact, Normal Strength, Normal Sensation, Normal Gait Psychological: Normal affect Diagnostic/Tx/Re-eval - Medical Decision Making Patient has a healing wound without evidence of infection. He was informed there is no concern for infection therefore there is no concern for MRSA. Patient was discharged with appropriate home- going instructions. ED Disposition - Plan for ED Patient: Disposition: Home or Assisted Living Diagnosis: Wound, open, forearm Instructions: ED Skin Avulsion Referrals: Aylin Olson PA [Primary Care Provider] - As Needed What to do if you have Problems For any increased pain, shortness of breath, bleeding, nausea or vomiting, chest pain, or any unexpected problems, contact your Primary Care Provider. Call [facility] ([phone]) or report to the closest Emergency Room. Call 911 if necessary. 01/21/21 0765 Date Casey Lopez MD Cosigner Signature (If Indicated): Date CC: CECIL Olson [facility] .Auto Diffon 05-17-2018 Basophils Auto #/vol (Bld) 0.10 10 3/mcL Normal 0.00-0.19 [facility] ([place]) Comment on above: Performed By: #### C SACHIN VILLAGOMEZ, ANEU, TROP, GFR, BMP ####[address] [place], [place] [address] Basophils/100 WBC Auto (Bld) 0.9 % Normal 0.0-2.5 [facility] ([place] Comment on above: Performed By: #### C SACHIN VILLAGOMEZ, ANEU, TROP, GFR, BMP ####[address] [place], [place] [address] Eosinophils 0.20 10 3/mcL Normal 0.00-0.40 [facility] [place] Comment on above: Performed By: #### C SACHIN VILLAGOMEZ, ANEU, TROP, GFR, BMP ####[address] [place], [place] [address] Eosinophils/100 leukocytes 1.9 % Normal 0.0-7.0 [facility] ([place] Comment on above: Performed By: #### C HERNANDO ADIFF, ANEU, TROP, GFR, BMP ####[address] [place], [place] [address] Lymphocytes 3.20 10 3/mcL Normal 0.77-3.85 [facility] [place] Comment on above: Performed By: #### C HERNANDO ADIFF, ANEU, TROP, GFR, BMP ####[address] [place], [place] [address] Lymphocytes/100 leukocytes 30.1 % Normal 10.0-50.0 [facility] ([place] Comment on above: Performed By: #### C BC, ADIFF, ANEU, TROP, GFR, BMP ####[address] [place], [place] [address] Monocytes 0.80 10 3/mcL Normal 0.15-1.00 [facility] ([place]) Comment on above: Performed By: #### C BC, ADIFF, ANEU, TROP, GFR, BMP ####[address] [place], [place] [address] Monocytes/100 leukocytes 7.5 % Normal 1.7-13.0 [facility] ([place] Comment on above: Performed By: #### C BC, ADIFF, ANEU, TROP, GFR, BMP ####[address] [place], [place] [address] Neutrophils/100 WBC Auto (Bld) 59.6 % Normal 37.0-80.0 [facility] ([place] Comment on above: Performed By: #### C BC, ADIFF, ANEU, TROP, GFR, BMP ####[address] [place], [place] [address] .GFRon 05-17-2018 eGFR (non-black) mL/min/{1.73_m2} Normal [facility] ([place]) Comment on above: Result Comment: GFR Population mean for , Non- Americans Ages 20-29 = 116 mL/min/1.73 sq.m. Ages 30-39 = 107 mL/min/1.73 sq.m. Ages 40-49 = 99 mL/min/1.73 sq.m. Ages 50-59 = 93 mL/min/1.73 sq.m. Ages 60-69 = 85 mL/min/1.73 sq.m. Ages 70+ = 75 mL/min/1.73 sq.m.Chronic Kidney Disease: Less than 60 mL/min/1.73 square metersEnd Stage Renal Disease: Less than 15 mL/min/1.73 square meters Performed By: #### C BC, ADIFF, ANEU, TROP, GFR, BMP ####[address] [place], [place] [address] eGFR (non-black) 110 ml/min/1.73sqm Normal [facility] ([place] Comment on above: Result Comment: GFR Population mean for , Non- Americans Ages 20-29 = 116 mL/min/1.73 sq.m. Ages 30-39 = 107 mL/min/1.73 sq.m. Ages 40-49 = 99 mL/min/1.73 sq.m. Ages 50-59 = 93 mL/min/1.73 sq.m. Ages 60-69 = 85 mL/min/1.73 sq.m. Ages 70+ = 75 mL/min/1.73 sq.m.Chronic Kidney Disease: Less than 60 mL/min/1.73 square metersEnd Stage Renal Disease: Less than 15 mL/min/1.73 square meters Performed By: #### C BC, ADIFF, ANEU, TROP, GFR, BMP ####[address] [place], [place] [address] .NEUABSon 05-17-2018 Neutrophils 6.30 10 3/mcL High 2.85-6.16 [facility] [place] Comment on above: Performed By: #### C BC, ADIFF, ANEU, TROP, GFR, BMP ####[address] [place], [place] [address] BMPon 05-17-2018 Glucose mass conc 121 mg/dL High 70-105 [facility] ([place] Comment on above: Performed By: #### C BC, ADIFF, ANEU, TROP, GFR, BMP ####[address] [place], [place] [address] BUN/Creatinine Ratio 22 ratio Normal 7-27 [facility] ([place]) Comment on above: Performed By: #### C BC, ADIFF, ANEU, TROP, GFR, BMP ####[address] [place], [place] [address] Creatinine 1.0 mg/dL Normal 0.6-1.2 [facility] ([place] Comment on above: Performed By: #### C BC, ADIFF, ANEU, TROP, GFR, BMP ####[address] [place], [place] [address] Calcium 9.0 mg/dL Normal 8.4-10.2 [facility] ([place] Comment on above: Performed By: #### C BC, ADIFF, ANEU, TROP, GFR, BMP ####[address] [place], [place] [address] Chloride 106 mmol/L Normal 98-107 [facility] ([place] Comment on above: Performed By: #### C BC, ADIFF, ANEU, TROP, GFR, BMP ####[address] [place], [place] [address] CO2 25 mmol/L Normal 22-29 [facility] ([place] Comment on above: Performed By: #### C BC, ADIFF, ANEU, TROP, GFR, BMP ####[address] [place], [place] [address] Electrolyte Balance 9.0 mEq/L Normal [facility] ([place]) Comment on above: Performed By: #### C BC, ADIFF, ANEU, TROP, GFR, BMP ####[address] [place], [place] [address] Potassium molar conc 4.2 mmol/L Normal 3.5-5.1 [facility] ([place] Comment on above: Performed By: #### C BC, ADIFF, ANEU, TROP, GFR, BMP ####[address] [place], [place] [address] Sodium 140 mmol/L Normal 136-146 [facility] ([place] Comment on above: Performed By: #### C BC, ADIFF, ANEU, TROP, GFR, BMP ####[address] [place], [place] [address] Urea nitrogen 22.2 mg/dL High 7.0-18.0 [facility] ([place]) Comment on above: Performed By: #### C BC, ADIFF, ANEU, TROP, GFR, BMP ####[address] [place], [place] [address] CBCon 05-17-2018 Erythrocyte distribution width Auto Ratio (RBC) 14.4 % Normal 11.5-14.5 [facility] ([place] Comment on above: Performed By: #### C BC, ADIFF, ANEU, TROP, GFR, BMP ####[address] [place], [place] [address] Erythrocytes (RBC) 5.00 10 6/mcL Normal 4.04-6.13 [facility] ([place] Comment on above: Performed By: #### C BC, ADIFF, ANEU, TROP, GFR, BMP ####[address] [place], [place] [address] Hematocrit (HCT) 45.8 % Normal 42.0-52.0 [facility] ([place] Comment on above: Performed By: #### C BC, ADIFF, ANEU, TROP, GFR, BMP ####[address] [place], [place] [address] Hemoglobin mass conc (Bld) 15.2 G/dL Normal 14.0-18.0 [facility] ([place] Comment on above: Performed By: #### C BC, ADIFF, ANEU, TROP, GFR, BMP ####[address] [place], [place] [address] MCH 30.4 pg Normal 27.0-31.2 [facility] ([place] Comment on above: Performed By: #### C BC, ADIFF, ANEU, TROP, GFR, BMP ####[address] [place], [place] [address] MCHC mass conc (RBC) 33.2 G/dL Normal 31.8-35.4 [facility] ([place] Comment on above: Performed By: #### C BC, ADIFF, ANEU, TROP, GFR, BMP ####[address] [place], [place] [address] MCV 91.6 fL Normal 80.0-94.0 [facility] ([place] Comment on above: Performed By: #### C BC, ADIFF, ANEU, TROP, GFR, BMP ####[address] [place], [place] [address] Platelet mean volume (PMV) 8.1 fL Normal 7.4-10.4 [facility] ([place] Comment on above: Performed By: #### C BC, ADIFF, ANEU, TROP, GFR, BMP ####[address] [place], [place] [address] Platelets 347 10 3/mcL Normal 130-400 [facility] ([place]) Comment on above: Performed By: #### C BC, ADIFF, ANEU, TROP, GFR, BMP ####[address] [place], [place] [address] WBC (Leukocytes) 10.60 10 3/mcL Normal 4.60-10.80 Counts include 234 beds at the [facility]) Comment on above: Performed By: #### C BC, ADIFF, ANEU, TROP, GFR, BMP ####[address] [place], [place] [address] [facility] Note on 05-17-2018 [facility] Note Normal [facility]) Pat Eduon 05-17-2018 Pat Edu Normal [facility]) Patient Summary Documentson 05-17-2018 Patient Summary Documents Normal [facility]) TROPon 05-17-2018 Troponin I.cardiac mass conc ng/mL Normal 0.00-0.30 [facility]) Comment on above: Result Comment: Belo w measuring range>=0.30 Consistent with cardiac damage, increased clinical risk and possibility of myocardial infarction. Serial measurements, clinical history, appropriate symptoms and/or ECG changes may help assess possibility of WA.*Other non-acute coronary syndrome conditions such as CHF, myocarditis, pulmonary emboli, sepsis and cardiac surgery could result in myocardial damage and increased troponin levels. Performed By: #### C BC, ADIFF, ANEU, TROP, GFR, BMP ####[place] [address] [place], [place] [address] XR CHEST 1 VIEWon 05-17-2018 XR CHEST 1 VIEW ORIGINALClinical history: Chest pain. COMPARISON: None. A single view of the chest was obtained. The heart is normal in size and configuration. The lungs are clear. There is no mediastinal or hilar mass or pleural effusion. There is no pneumothorax or atelectasis. The visualized bony structures are within normal limits. IMPRESSION: Normal chest. Interpreted By: Dipesh Pintoreliminary Report By: Dipesh Pinto MDElectronically Signed By: Dipesh Pinto MD Dictated Date: 05/17/2018 4:43:02 AM Prelim Date: 05/17/2018 4:43:02 AM Sign Date: 05/17/2018 4:44:06 AM Normal [facility] ([place] Vital Signs Date Time Vital Sign Value Performing Clinician Mini knapp 03-21-2022 13:01-0400 Body temperature 97.3 [degF] Shavon Gibson TURNING AND BEADING MACHINE OPERATOR.WEB PRESS OPERATOR HELPER [employer]SET Work Phone: [facility] 03-21-2022 13:01-0400 Body weight 102.24 kg Shavon Gibson APRN.WEB PRESS OPERATOR HELPER OFFSET Work Phone: [facility] 03-21-2022 13:01-0400 Diastolic blood pressure 80 mm[Hg] Shavon Gibson TURNING AND BEADING MACHINE OPERATOR.WEB PRESS OPERATOR HELPER OFFSET Work Phone: [facility] 03-21-2022 13:01-0400 Heart rate 118 /min Shavon Gibson TURNING AND BEADING MACHINE OPERATOR.WEB PRESS OPERATOR HELPER OFFSET Work Phone: [facility] 03-21-2022 13:01-0400 Respiratory rate 18 /min Shavon Gibson TURNING AND BEADING MACHINE OPERATOR.WEB PRESS OPERATOR HELPER OFFSET Work Phone: [facility] 03-21-2022 13:01-0400 SaO2% (BldA) [Mass fraction] 96 % Shavon Gibson TURNING AND BEADING MACHINE OPERATOR.WEB PRESS OPERATOR HELPER OFFSET Work Phone: [facility] 03-21-2022 13:01-0400 Systolic blood pressure 122 mm[Hg] Shavon Gibson TURNING AND BEADING MACHINE OPERATOR.WEB PRESS OPERATOR HELPER OFFSET Work Phone: [facility] Encounters Encounter Date Encounter Type Care Provider Facility Start: 09-17-2024 End: 09-17-2024 Documentation procedure Cherrie Bahena APRN - WEB PRESS OPERATOR HELPER OFFSET Work Phone: [facility] Comment on above: Follow-up (Today, in office visit missed; this is 4th visit missed. Discussed need to be seen closer to his home in [place] as transportation is cited for missed visits. Referred to [facility] ) Start: 09-17-2024 End: 09-17-2024 Telephone encounter Cherrie Bahena TURNING AND BEADING MACHINE OPERATOR - WEB PRESS OPERATOR HELPER OFFSET Work Phone: [facility] Clinical Communication Comment on above: Appointment Start: 09-13-2024 End: 09-13-2024 Documentation procedure Cherrie Bahena TURNING AND BEADING MACHINE OPERATOR - WEB PRESS OPERATOR HELPER OFFSET Work Phone: [facility] Comment on above: Med Refill Start: 09-10-2024 End: 10-03-2024 Refill Cherrie Bahena TURNING AND BEADING MACHINE OPERATOR - WEB PRESS OPERATOR HELPER OFFSET Work Phone: [facility] [employer] Comment on above: Opioid type dependen ce, continuous (HCC) Start: 08-15-2024 End: 08-19-2024 Documentation procedure Cherrie Bahena TURNING AND BEADING MACHINE OPERATOR - WEB PRESS OPERATOR HELPER OFFSET Work Phone: [facility] Comment on above: Medication Problem ( Seen note) Start: 08-13-2024 End: 08-13-2024 ambulatory [employer] [employer] [facility] Start: 08-13-2024 End: 08-13-2024 Office outpatient visit 10 minutes Cherrie LagunaOopsLabyessy TURNING AND BEADING MACHINE OPERATOR - WEB PRESS OPERATOR HELPER OFFSET Work Phone: [facility] Comment on above: Opioid dependence in remission (HCC) (Primary Dx) Start: 07-09-2024 End: 07-09-2024 Office outpatient visit 25 minutes Cherrie LagunaJingit TURNING AND BEADING MACHINE OPERATOR - WEB PRESS OPERATOR HELPER OFFSET Work Phone: [facility] [facility] Comment on above: Opioid dependence in remission (HCC) Start: 07-09-2024 End: 07-09-2024 ambulatory CHERRIE Karmasphere [facility] [employer] [facility] Start: 06-27-2024 End: 06-27-2024 Documentation procedure Cherrie [employer] TURNING AND BEADING MACHINE OPERATOR - WEB PRESS OPERATOR HELPER OFFSET Work Phone: [facility] Comment on above: Med Refill Start: 06-25-2024 End: 06-30-2024 Telephone encounter Cherrie [employer] TURNING AND BEADING MACHINE OPERATOR - WEB PRESS OPERATOR HELPER OFFSET Work Phone: [facility] Comment on above: Appointment Request Start: 05-27-2024 End: 05-28-2024 Documentation procedure Cehrrie Bahena TURNING AND BEADING MACHINE OPERATOR - WEB PRESS OPERATOR HELPER OFFSET Work Phone: [facility] Start: 05-27-2024 End: 05-28-2024 Telephone encounter Cherrie Bahena TURNING AND BEADING MACHINE OPERATOR - WEB PRESS OPERATOR HELPER OFFSET Work Phone: [facility] Comment on above: Medication Problem ( 05/27/24 Pt asking for refill medication buprenorphine-naloxone (Suboxone) 8-2 MG per sublingual film Pt stated CANNOT have tablets on this medication pt would like a call back to discuss pls advise) Start: 05-26-2024 End: 05-29-2024 ambulatory Trinidad Wilkins RN [facility] Clinical Communication Start: 05-26-2024 End: 05-29-2024 Patient encounter procedure Trinidad Wilkins RN [facility] Clinical Communication Start: 05-14-2024 End: 05-14-2024 Office outpatient new 45 minutes Cherriemamta Lagunakhadar TURNING AND BEADING MACHINE OPERATOR - WEB PRESS OPERATOR HELPER OFFSET Work Phone: [facility] Comment on above: Opioid type dependen ce, continuous (HCC) (Primary Dx) Start: 05-14-2024 End: 05-17-2024 ambulatory Trinidad Wilkins RN [facility] Clinical Communication Start: 05-14-2024 End: 05-17-2024 Patient encounter procedure Trinidad Wilkins RN [facility] Clinical Communication Start: 05-08-2024 Telephone encounter Cherrie wilson TURNING AND BEADING MACHINE OPERATOR - WEB PRESS OPERATOR HELPER OFFSET Work Phone: [facility] Comment on above: Missed Appointment Start: 04-30-2024 End: 10-13-2024 Patient encounter procedure Ciera Mchugh RN [facility] Clinical Communication Start: 04-30-2024 End: 10-13-2024 ambulatory CHERRIE ROBBIEYESSY [facility] Start: 04-30-2024 End: 04-30-2024 Office outpatient visit 25 minutes Cherrie Jefry TURNING AND BEADING MACHINE OPERATOR - WEB PRESS OPERATOR HELPER OFFSET Work Phone: [facility] Comment on above: Opioid type dependen ce, continuous (HCC) (Primary Dx) Start: 03-21-2022 End: 03-21-2022 Patient encounter procedure Shavon Gibson TURNING AND BEADING MACHINE OPERATOR.WEB PRESS OPERATOR HELPER OFFSET Work Phone: [facility] Comment on above: Blurred vision, left eye (Primary Dx) Abrasion of left cor rona, initial encounter (Primary Dx); Corneal edema of left eye Start: 02-20-2022 Refill M Tony castle PA-C Work Phone: [facility] [place] Comment on above: Refill Request Start: 05-17-2018 End: 05-17-2018 Emergency department patient visit SANDEEP AUGUSTIN Facility:B Procedures Date Procedure Procedure Detail Performing Clinician Start: 07-09-2024 MEDICATION ASSISTED TREATMENT PANEL Cherrie Bahena TURNING AND BEADING MACHINE OPERATOR - WEB PRESS OPERATOR HELPER OFFSET Work Phone: Start: 05-14-2024 MEDICATION ASSISTED TREATMENT PANEL Cherrie Bahena TURNING AND BEADING MACHINE OPERATOR - WEB PRESS OPERATOR HELPER OFFSET Work Phone: Start: 12-13-2016 Adult depression screening assessment NOEL Olson PA-C Work Phone: Plan of Treatment Date Care Activity Detail Author Start: 2060 RSV Immunization for Adults (1 - 1-dose 75+ series) RSV Immunization for Adults (1 - 1-dose 75+ series) [facility] Start: 2045 RSV Immunization age d 60 or older (1 - 1-dose 60+ series) RSV Immunization aged 60 or older (1 - 1-dose 60+ series) [facility] Start: 2035 Zoster Vaccines (1 o f 2) Zoster Vaccines (1 of 2) [facility] Start: 12-13-2026 DTaP/Tdap/Td Vaccine s (3 - Td or Tdap) DTaP/Tdap/Td Vaccines (3 - Td or Tdap) [facility] Start: 12-13-2026 Urine microalbumin profile DTAP,TDAP,TD (3 - Td or Tdap) [facility] Start: 09-17-2024 End: 09-17-2024 Patient encounter procedure 09/17/2024 2:30 PM EDT Office Visit [facility] [address] [place] [address] Cherrie Bahena APRN - CNP [address] [place] [address] [facility] Start: 08-13-2024 End: 08-13-2024 Telemedicine consultation with patient 08/13/2024 2:00 PM EDT Telemedicine [facility] [address] [place] [phone] Cherrie Bahena APRN - WEB PRESS OPERATOR HELPER OFFSET [address] [place] [address] [facility] Start: 07-27-2024 COVID-19 Vaccine ( season) COVID-19 Vaccine () [facility] Start: 07-27-2024 COVID-19 Vaccine ( season) COVID-19 Vaccine () [facility] Start: 07-27-2024 Influenza vaccination [facility] Start: 07-09-2024 End: 07-09-2024 Patient encounter procedure 07/09/2024 1:30 PM EDT Office Visit [facility] [address] [place] [phone] Cherrie Bahena APRN - WEB PRESS OPERATOR HELPER OFFSET [address] [place] [address] [facility] Start: 06-18-2024 End: 06-18-2024 Patient encounter procedure 06/18/2024 3:00 PM EDT Office Visit [facility] [address] [place] [phone] Cherrie Bahena APRN - WEB PRESS OPERATOR HELPER OFFSET [address] [place] [address] [facility] Start: 05-14-2024 End: 05-14-2024 Patient encounter procedure 05/14/2024 2:30 PM EDT Office Visit [facility] [address] [place] [phone] Cherrie Bahena APRN - WEB PRESS OPERATOR HELPER OFFSET [address] [place] [address] [facility] Start: 05-14-2024 End: 05-14-2025 MEDICATION ASSISTED TREATMENT PANEL Medication Assisted Treatment Panel (MATP) Lab Routine Opioid type dependence, continuous (HCC) Expected: 05/14/2024 (Approximate), Expires: 05/14/2025 [facility] [employer] Work Phone: Comment on above: Expected: 05/14/2024 (Approximate), Expires: 05/14/2025 Start: 05-08-2024 End: 05-08-2024 Patient encounter procedure 05/08/2024 12:00 PM EDT Office Visit [facility] [address] [place] [id number] Cherrie Bahena APRN - WEB PRESS OPERATOR HELPER OFFSET [address] [place] [address] [facility] Start: 04-30-2024 End: 04-30-2025 MEDICATION ASSISTED TREATMENT PANEL Medication Assisted Treatment Panel (MATP) Lab Routine Opioid type dependence, continuous (HCC) Expected: 04/30/2024 (Approximate), Expires: 04/30/2025 [facility] [employer] Work Phone: Comment on above: Expected: 04/30/2024 (Approximate), Expires: 04/30/2025 Start: 07-27-2023 COVID-19 Vaccine ( season) COVID-19 Vaccine ( season) [facility] Start: 07-27-2022 Influenza vaccination INFLUENZ A (Season Ended) [facility] Start: 07-27-2021 Influenza vaccination INFLUENZA (#1) [facility] Start: 2020 LIPID SCREEN LIPID SCREEN [facility] Start: 12-13-2017 Adult depression screening assessment DEPRESSION SCREENING [facility] Start: 2004 Hepatitis B Vaccines (1 of 3 - 19+ 3-dose series) Hepatitis B Vaccines (1 of 3 - 19+ 3-dose series) [facility] Start: 2003 Hepatitis C screening Hepatitis C Sc reening [facility] Start: 1998 Varicella vaccination Varicell a Vaccines (1 of 2 - 13+ 2-dose series) [facility] Start: 1997 Depression Screening Depression Scre ening [facility] Start: 1990 COVID-19 VACCINE (1) COVID-19 VACCIN E (1) [facility] Start: 1986 MMR Vaccines (1 of 1 - Standard series) MMR Vaccines (1 of 1 - Standard series) [facility] Start: 1985 HIV screening HIV Screening [facility] Start: 1985 Lipid panel Lipid Panel [facility] Immunizations Immunization Date Immunization Notes Care Provider Yunior capps 12-13-2016 tetanus toxoid, redu delta diphtheria toxoid, and acellular pertussis vaccine, adsorbed NA [facility] [employer] Work Phone: [facility] Work Phone: 12-31-2005 diphtheria and tetan us toxoids, adsorbed for pediatric use NA [facility] [employer] Work Phone: [facility] Work Phone: Payers Date Payer Category Payer Medicaid HMO [id number] 2023 Medicaid [id number] 2021 Medicaid 2021 Medicaid [employer] [id number] 2021-Present [phone] [address] [place] [address] Medicaid [id number] 2018 Self-pay Social History Date Type Detail Facility Tobacco smoking stat [facility] Smokes tobacco daily [facility] History of tobacco use Cigarette Smoker [facility] Start: 09-13-2020 End: 03-21-2022 Alcohol intake Current non-drinker of alcohol (finding) [facility] Start: 1985 Sex Assigned At Not on file [facility] Start: 03-11-2022 End: 03-21-2022 Exposure to SARS-CoV-2 (event) Not sure [facility] Tobacco smoking stat [facility] Tobacco smoking consumption unknown [facility] Gender identity Not on file [facility] Start: 04-28-2024 Sex [facility] (finding[facility] 02-20-2022 to 09-17-2024 Cherrie Bahena APRN - ROSA ISELA - 09/17/2024 3:41 PM EDTTelephone Encounter - Nivia Davison - 09/17/2024 3:00 PM EDTTelephone Encounter - Nivia Davison - 09/17/2024 3:00 PM EDTPatient Instructions Note Date & Type Note Facility 09-17-2024 History of Presen t illness Narrative September 17, 2024 Phone Contact Scheduled for office visit today; called 30 prior to scheduled time to say he could not find transportation. Last in office visis in April & June; Missed May, & visit scheduled for September 10 & now, September 17 (4 office visits) Refills for Suboxone phoned in several times to [facility] / [place]; at one point, he insisted on flim over pills which raises some concern. Refill for # 12 Subxone films called in to [facility] on September 13 to bridge to this appointment (Sep 17) Prior script phoned on Aug 15, # 70 suboxone films prescribed. In talking with him today, he tells me he did not receive the # 12 films, apparently was waiting for [facility] to alert him (??). We discussed the difficulties getting transportation to be seen here in office; that virtual/phone visits can be arranged ONLY after several months of compliance with treatment program and in office visits/tox screens. Informed that I would not be able to continue seeing him for MAT Recommended he be seen at [facility] for continued MAT with Dr Esquivel; Offered to provide contact number, but he reports he knows where [facility] is located, Advised that suboxone script should be waiting at [facility], which will bridge till he sees staff at [facility]. Will inform our geological technical officer/coordinator to proceed with sending letter. Cherrie Bahena APRN documented in this encounter [facility] 09-17-2024 Telephone encounter Note Images from the original note were not included. talked with Matt, bailey script called in on 09/13 for bridge supply to today; advised to go to [facility] as it's closer; note in chart Received: Today ANTWAN John CNP Caller: Unspecified (Today, 2:22 PM) [facility] 09-17-2024 Miscellaneous Notes Images from the original note were not included. talked with bailey Gutierrez script called in on 09/13 for bridge supply to today; advised to go to [facility] as it's closer; note in chart Received: Today ANTWAN John CNP Caller: Unspecified (Today, 2:22 PM) Name of Caller: Matt Contact Reason for Appointment: Pt states has in office appointment today 09/17/24 at 2:30 pt is unable to come in an hour away and homeless. Pt states there was a mistake in last appointment and Cherrie was going to call in medication and never did. Pt is very sick. Pt is asking if can do a VV and able to make it by 4:00 for drop if that is what is needed. Spoke with backline Cherrie will call pt. FYI Office Name: Behavioral Health Medication Refills need, if any: n/a Medication Name: nA documented in this encounter [facility] 09-17-2024 Telephone encounter Note Name of Caller: Matt Contact Reason for Appointment: Pt states has in office appointment today 09/17/24 at 2:30 pt is unable to come in an hour away and homeless. Pt states there was a mistake in last appointment and Cherrie was going to call in medication and never did. Pt is very sick. Pt is asking if can do a VV and able to make it by 4:00 for drop if that is what is needed. Spoke with backline Cherrie will call pt. FYI Office Name: Behavioral Health Medication Refills need, if any: n/a Medication Name: nA [facility] 09-13-2024 History of Presen t illness Narrative September 13, 2024Sunday Phoned to [facility] ANN 8/2mg; Film # 12: NO R: Si in am/1/2 in patrica Bridge to next OFFICE Appointment; NOTE: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 past; [facility]ent 2 years in [facility] for drug-related charges; RELEASED in January, (2 months ago) [facility], thusly resorted to illicit opiate use (Fentanyl/pills) whatever available. Some methamphetamine, but not consistent Uses to prevent w/drawal. Denies Current use of alcohol, bzo's, optical designer substances; Some methamphetamine Denies seizure hx Denies opiate overdoses LAST use: 8 hrs ago (uncertain qty) to avoid w/drawal Goal is to keep opiate dependence in remission with suboxone stabilization, return to work, reconnect with family. OAARS REVIEWED INDICATING SBXNE SCRIPT FILLED IN JANUARY [facility] Exam: Pleasant gentleman; polite; dressed casually; good hygiene/grooming. Fully oriented; coherent; pleasant mood; affect anxious/expressive; Maintained eye contact. Neg Tremors; Neg clamminess/NO jaundice; Skin: warm/dry; NO lesions/track huff evident Eyes clear; PEERLA 6mm Abdomen: no distention Respirs: clear/nonlabored; NO cough/wheezing Diagnostic Impression: Opiate Dependence/Addiction Based on history, as reported by him & by reviewing Echart/OARRS, he's been struggling with opiate addiction for over 12 years; He's been unable to refrain/stop despite multiple treatments and in the face of significant legal/social effects.. He exhibits dislike of opiates & a firm desire to stop. As he reports positive effect with suboxone therapy, & is familiar with effects/side effects, he is a candidate for outpatient maintenance therapy. He agrees to continue attending 12Step Meetings & comply with Clinic visits. Plan: Continue attendance at 12 Step Meetings Begin dosing this patrica: 2mg x 4 initially ( to avoid precipitated w/d) 8mg bid thereafter Script phoned to [facility] in [place]: suboxone 8mg films: #18 NO refills Return to office on May 08 at 12 noon documented in this encounter [facility] 04-26-2022 Note HNO ID: [id number] Author: Aracely Nieves, OD Service: ? Author Type: FINANCIAL AID ADMINISTRATOR Type: Progress Notes Filed: 03/21/2022 2:00 PM Note Text: 1. Abrasion of left cornea, initial encounter 2. Corneal edema of left eye Likely corneal abrasion with healing -flushed eye in office with eyewash to remove any possible debris Medications to Start Taking erythromycin (ROMYCIN) 5 mg/gram (0.5 %) ophthalmic ointment Use 1 application in the left eye three times daily for 7 days. Follow-up in 3 days or sooner with any new or worsening problems Aracely Nieves, OD March 21, 2022 1:58 PM [facility] 03-21-2022 Note HNO ID: [id number] Author: Shavon Gibson APRN.WEB PRESS OPERATOR HELPER OFFSET Service: ? Author Type: Nurse Practitioner Type: Progress Notes Filed: 03/21/2022 1:38 PM Note Text: Subjective HPI HPI Matt Matt is a 36 year old male who presents today for CC of left eye pain, blurred vision. This started 2 dasys. Has tried otc eye drops without relief. Symptoms are worsened by nothing . Denies injury, redness, drainage. .Patient presents with: Eye Problem: (LT) eye blurred vision pain rated 2, irritation Nausea: body aches x3 days PAST MEDICAL HISTORY Diagnosis Date - Urinary calculus, unspecified 2003 Renal stones PAST SURGICAL HISTORY Procedure Laterality Date - CHOLECYSTECTOMY 2003 Cholecystectomy ALLERGIES Patient has no known allergies. MEDICATIONS CALCIUM CARBONATE (TUMS ORAL) Take 2-4 tablets by mouth as needed. omeprazole (PRILOSEC) 20 mg capsule Take 1 capsule by mouth twice daily. buPROPion XL (WELLBUTRIN XL) 150 mg 24 hr tablet Take 1 tablet by mouth once daily. traZODone (DESYREL) 50 mg tablet Take 1 tablet by mouth daily at bedtime. FAMILY HISTORY Problem Relation Age of Onset - Hypertension Paternal Grandfather - Colon Cancer Paternal Grandfather - Hypertension Paternal Uncle - Cancer Father throat - Alzheimer's Disease Maternal Grandmother Social History Tobacco Use - Smoking status: Current Every Day Smoker Packs/day: 1.00 Types: Cigarettes - Smokeless tobacco: Never Used Substance Use Topics - Alcohol use: No - Drug use: Never ROS Objective Blood pressure 122/80, pulse 118, temperature 36.3 ?C (97.3 ?F), resp. rate 18, weight 102.2 kg (225 lb 6.4 oz), SpO2 96 %. Physical Exam Constitutional: General: He is not in acute distress (slight, d/t eye discomfort. ). Appearance: He is not toxic-appearing. HENT: Right Ear: Hearing, tympanic membrane and external ear normal. Left Ear: Hearing, tympanic membrane, ear canal and external ear normal. Nose: No mucosal edema. Mouth/Throat: Pharynx: Uvula midline. Eyes: General: Right eye: No discharge. Left eye: No discharge. Conjunctiva/sclera: Right eye: Right conjunctiva is not injected. Left eye: Left conjunctiva is not injected. Lymphadenopathy: Cervical: Right cervical: No superficial cervical adenopathy. Left cervical: No superficial cervical adenopathy. Comments: No cervical lymphadenopathy bilaterally Neurological: Mental Status: He is oriented to person, place, and time. ASSESSMENT/PLAN: 1. Blurred vision, left eye - ICD9: 368.8, ICD10: H53.8 Appointment made with eye dr today, concerns for intraocular abnormality. Shavon Gibson APRN.WEB PRESS OPERATOR HELPER OFFSET [facility] 03-21-2022 History of Presen t illness Narrative 1. Abrasion of left cornea, initial encounter 2. Corneal edema of left eye Likely corneal abrasion with healing -flushed eye in office with eyewash to remove any possible debris Medications to Start Taking erythromycin (ROMYCIN) 5 mg/gram (0.5 %) ophthalmic ointment Use 1 application in the left eye three times daily for 7 days. Follow-up in 3 days or sooner with any new or worsening problems Aracely Nieves, OD March 21, 2022 1:58 PM documented in this encounter [facility] 03-21-2022 History of Presen t illness Narrative Subjective HPI HPI Matt Matt is a 36 year old male who presents today for CC of left eye pain, blurred vision. This started 2 dasys. Has tried otc eye drops without relief. Symptoms are worsened by nothing . Denies injury, redness, drainage. .Patient presents with: Eye Problem: (LT) eye blurred vision pain rated 2, irritation Nausea: body aches x3 days PAST MEDICAL HISTORY Diagnosis Date Urinary calculus, unspecified 2003 Renal stones PAST SURGICAL HISTORY Procedure Laterality Date CHOLECYSTECTOMY 2003 Cholecystectomy ALLERGIES Patient has no known allergies. MEDICATIONS CALCIUM CARBONATE (TUMS ORAL) Take 2-4 tablets by mouth as needed. omeprazole (PRILOSEC) 20 mg capsule Take 1 capsule by mouth twice daily. buPROPion XL (WELLBUTRIN XL) 150 mg 24 hr tablet Take 1 tablet by mouth once daily. traZODone (DESYREL) 50 mg tablet Take 1 tablet by mouth daily at bedtime. FAMILY HISTORY Problem Relation Age of Onset Hypertension Paternal Grandfather Colon Cancer Paternal Grandfather Hypertension Paternal Uncle Cancer Father throat Alzheimer's Disease Maternal Grandmother Social History Tobacco Use Smoking status: Current Every Day Smoker Packs/day: 1.00 Types: Cigarettes Smokeless tobacco: Never Used Substance Use Topics Alcohol use: No Drug use: Never ROS Objective Blood pressure 122/80, pulse 118, temperature 36.3 C (97.3 F), resp. rate 18, weight 102.2 kg (225 lb 6.4 oz), SpO2 96 %. Physical Exam Constitutional: General: He is not in acute distress (slight, d/t eye discomfort. ). Appearance: He is not toxic-appearing. HENT: Right Ear: Hearing, tympanic membrane and external ear normal. Left Ear: Hearing, tympanic membrane, ear canal and external ear normal. Nose: No mucosal edema. Mouth/Throat: Pharynx: Uvula midline. Eyes: General: Right eye: No discharge. Left eye: No discharge. Conjunctiva/sclera: Right eye: Right conjunctiva is not injected. Left eye: Left conjunctiva is not injected. Lymphadenopathy: Cervical: Right cervical: No superficial cervical adenopathy. Left cervical: No superficial cervical adenopathy. Comments: No cervical lymphadenopathy bilaterally Neurological: Mental Status: He is oriented to person, place, and time. ASSESSMENT/PLAN: 1. Blurred vision, left eye - ICD9: 368.8, ICD10: H53.8 Appointment made with eye dr maldonado, concerns for intraocular abnormality. Shavon Gibson APRN.WEB PRESS OPERATOR HELPER OFFSET documented in this encounter [facility] 02-20-2022 Miscellaneous Notes Patient is requesting omeprazole because tums are not working. He would like a return call to know if rx was approved and sent. Patient has been identified by name and date of : Yes Pending Prescriptions Disp Refills OMEPRAZOLE 20 MG CAPSULE,DELAYED RELEASE 30 capsule 5 Sig: Take 1 capsule by mouth twice daily. JULIEN: No ROBERTO CARLOS-09/13/20 Labs-08/27/20 NOV-none med filled-12/09/19 RX INSTRUCTIONS: Patient requesting a call when RX is approved and sent to the pharmacy. Please call patient at: [phone] rKistina Osborn Pss documented in this encounter [facility] Evaluation note Diagnosis GERD without esophagitis Esophageal reflux hx IV drug Other, mixed, or unspecified nondependent drug abuse, unspecified documented in this encounter [facility] note* Diagnosis Blurred vision, left eye- Primary Other specified visual disturbances documented in this encounter [facility] note* Diagnosis Abrasion of left cornea, initial encounter- Primary Corneal edema of left eye documented in this encounter [facility] note* Diagnosis Opioid type dependence, continuous (HCC)- Primary Opioid type dependence, continuous documented in this encounter [facility] note* Diagnosis Opioid type dependence, continuous (HCC)- Primary Opioid type dependence, continuous documented in this encounter [facility] note* Diagnosis Opioid dependence in remission (HCC) Opioid type dependence, in remission documented in this encounter [facility] note* Diagnosis Opioid dependence in remission (HCC)- Primary Opioid type dependence, in remission documented in this encounter [facility] note* Diagnosis Opioid type dependence, continuous (HCC) Opioid type dependence, continuous documented in this encounter [facility] Summary Purpose Family History No Family History Records FoundNo Family History Records FoundNo Family History Records FoundNo Family History Records FoundNo Family History Records Found Advance Directives No Advanced Directives Records FoundNo Advanced Directives Records FoundNo Advanced Directives Records FoundNo Advanced Directives Records FoundNo Advanced Directives Records Found Additional Source Comments (unrecognized sect ion and content) No Status Records FoundNo Status Records FoundNo Status Records FoundNo Status Records FoundNo Status Records Found INFORMATION SOURCE (unrecogn ized section and content) DATE CREATED AUTHOR 05/18/2018 [facility] ([place]) DATE CREATED AUTHOR AUTHOR'S ORGANIZ ATION 09/03/2021 [facility] DATE CREATED AUTHOR AUTHOR'S ORGANIZ ATION 01/08/2022 [facility] DATE CREATED AUTHOR AUTHOR'S ORGANIZ ATION 04/01/2022 [facility] DATE CREATED AUTHOR AUTHOR'S ORGANIZ ATION 09/19/2024 [facility] Source Comments (unrecognize d section and content) In the event this informatio n is protected by the Federal Confidentiality of Alcohol and Drug Abuse Patient Records regulations: The Federal rules restrict any use of the information to criminally investigate or prosecute any alcohol or drug abuse patient.[facility] the event this information is protected by the Federal Confidentiality of Alcohol and Drug Abuse Patient Records regulations: The Federal rules restrict any use of the information to criminally investigate or prosecute any alcohol or drug abuse patient.[facility] the event this information is protected by the Federal Confidentiality of Alcohol and Drug Abuse Patient Records regulations: The Federal rules restrict any use of the information to criminally investigate or prosecute any alcohol or drug abuse patient.[facility] Reason for Visit (unrecogniz ed section and content) Reason Onset Date Comments Refill Request 02/20/2022 Reason Comments Eye Problem (LT) eye blurred vis ion pain rated 2, irritation Nausea body aches x3 days Reason Comments Eye Pain Left Eye Reason Comments opiate dependence Opiate dependence Reason Onset Date Comments Missed Appointment 05/08/2024 Reason Comments opiate dependence in remission Opiate de pendence in remission Reason Onset Date Comments Medication Problem 05/14/2024 Reason Onset Date Comments Medication Problem 05/27/2024 05/27/24 Pt a sking for refill medication buprenorphine-naloxone (Suboxone) 8-2 MG per sublingual film Pt stated CANNOT have tablets on this medication pt would like a call back to discuss pls advise Reason Onset Date Comments Medication Problem 05/26/2024 Reason Comments Med Refill Reason Onset Date Comments Appointment Request 06/25/2024 Reason Comments Drug Problem Opiate dependence in remission Reason Comments Medication Problem Seen note Reason Onset Date Comments Appointment 09/17/2024 Reason Comments Follow-up Today, in office vis it missed; this is 4th visit missed. Discussed need to be seen closer to his home in [place] as transportation is cited for missed visits. Referred to [facility] Reason Onset Date Comments Med Refill 09/10/2024 buprenorphine-na loxone (Suboxone) 8-2 MG per sublingual film Reason Onset Date Comments Medication Problem 04/30/2024 Care Teams (unrecognized sec tion and content) Campus Aide Relationship Specialty Start Date End Date Aylin Olson PA-C [address], [place] [id number] PCP - General Family Practice 12/14/16 Campus Aide Relationship Specialty Start Date End Date Aylin Olson PA-C [address], [place] [id number] PCP - General Family Practice 12/14/16 FOR RECORDS PERTAINING TO PATIENTS WHO ARE OR HAVE BEEN ENROLLED IN A CHEMICAL DEPENDENCY/SUBSTANCEABUSE PROGRAM, SOME INFORMATION MAY BE OMITTED. This clinical summary was aggregated from multiple sources. Caution should be exercised in using it in the provision of clinical care. This summary normalizes information from multiple sources, and as a consequence, information in this document may materially change the coding, format and clinical context of patient data. In addition, data may be omitted in some cases. CLINICAL DECISIONS SHOULD BE BASED ON THE PRIMARY CLINICAL RECORDS. [facility] [employer] [facility]. provides no warranty or guarantee of the accuracy or completeness of information in this document.
[2025-06-10] MEDS: DiphenhydrAMINE 50 MG/ML Syringe 25 MG IV (01:33)
[2025-06-10] MEDS: 0.9% Normal Saline (1000mL) 1,000 ML 999 ML IV (01:33)
[2025-06-10 01:51] LABS: Barbiturate Urine NEGATIVE (< 200 ng/mL); Benzodiazepine Urine NEGATIVE (< 200 ng/mL); PCP Urine NEGATIVE (< 25 ng/mL); THC Urine PRESUMPTIVE POSITIVE (< 50 ng/mL)
[2025-06-10 01:52] LABS: AST(SGOT) 25 U/L (<=37); Alanine Aminotransfer ALT/SGPT 13 U/L (<=46); Albumin, Serum 4.6 g/dL (3.5-5.0); Alcohol, Blood (Medical)-Serum < 10.1 mg/dL (<=10.0); Alkaline Phosphatase 107 U/L (40-129); Anion Gap 17 (5-15); BUN 17 mg/dL (4-19); BUN/Creat Ratio 14.1 RATIO (10-20); Calcium,Total 10.0 mg/dL (7.6-11.0); Carbon Dioxide 21.8 mmol/L (21.0-32.0); Chloride 103 mmol/L (98-108); Estimated Creatinine Clearance 97.16 ml/min (50-250); Globulin 3.8 g/dL (2.2-4.2); Glucose 108 mg/dL (70-99); Potassium 4.1 mmol/L (3.3-5.1)
[2025-06-10 01:56] LABS: Hematocrit 42.1 % (40-54); Hemoglobin 14.3 g/dL (13.0-16.5); Immature Granulocytes Count 0.050 X10^3/uL (0.0-0.0); Mean Corp Hgb Conc 34.0 g/dL (32-36); Mean Corpuscular Volume 85.4 fL (80-94); Mean Platelet Vol. 9.7 fl (6.2-12.0); NRBC Flagged by Analyzer 0 % (0-5); Platelet Count 705 K/mm3 (150-450); RBC Distribution Width CV 14.8 % (11.6-14.6); RBC Distribution Width SD 45.9 fl (35.1-43.9); Red Blood Count 4.93 M/mm3 (4.6-6.2); White Blood Count 15.7 K/mm3 (4.4-11.0)
--- NOTE | 2025-06-10 01:56 | EDS_ITS ---
HPI History of Present Illness Chief Complaint: Substance Abuse Informant: patient Narrative Narrative: Patient is a 39-year-old male who reports a longstanding history of heroin/opioid abuse. He states he will inject or snort the drug almost every 4 hours. He states he last used approximately 24 hours ago. He states he is never attempted rehab in the past. At this time he is complaining of shaking chills with nausea and abdominal discomfort. He states that he would like to stop using at this time in order to help prevent withdrawal symptoms comes to the ER for evaluation [facility] Medical History Substance use Hepatitis Home Medications ?Medication ?Instructions ?Recorded ?Last Taken ?Type cephalexin 500 mg capsule 500 mg PO Q6 #40 CAPSULES Unknown Rx buprenorphine 8 mg-naloxone 2 mg 1 ea sublingual BID 0 06/10/25 Unknown History sublingual film clonidine HCl 0.1 mg tablet 0.1 mg PO BID PRN PRN inso mnia 06/10/25 Unknown History Allergy/AdvReac Type Severity Reaction Status Date / Time No Known Allergies Allergy Verified 06/09/25 23:51 Family History no significant family his Social History Smoking Status: Current every day smoker tobacco type: cigarettes ROS ROS ED Constitutional Constitutional ED: Reports chills, subjective and sweats; Denies fever(s) ENT ENT ED: Denies sore throat Cardiovascular Cardiovascular: Denies chest pain Respiratory/Chest Respiratory/Chest: Denies cough or dyspnea Gastrointestinal Gastrointestinal: Reports abdominal pain, nausea and vomiting; Denies diarrhea Genitourinary Genitourinary ED: Denies dysuria Musculoskeletal Musculoskeletal: Reports myalgias Integumentary Denies rash Neurologic Neurologic: Denies headache(s) Hematologic/Lymphatic Hematologic/Lymphatic: Denies easy bleeding or easy bruising EXAM Physical Exam Const Vital Signs: 06/09/25 23:51 06/09/25 23:51 06/10/25 01:51 Temperature 98 F Temperature Source Temporal Pulse Rate 126 H 131 H 109 H Respiratory Rate 22 H 18 Blood Pressure 174/125 H 181/118 H 144/102 H Blood Pressure Mean 141 139 116 Pulse Ox 98 99 Oxygen Delivery Method Room Air Room Air 06/10/25 02:04 Temperature 99.3 F H Temperature Source Pulse Rate 109 H Respiratory Rate 18 Blood Pressure 144/102 H Blood Pressure Mean 116 Pulse Ox 99 Oxygen Delivery Method Positive well nourished and well developed General Appearance ED: well developed; Negative for pallor HEENT HEENT Narrative: Normocephalic atraumatic No tongue or lip swelling no oral lesions no airway edema or compromise No signs of infection noted in the posterior pharynx Eyes PERRL and EOMs intact bilaterally General Eye ED: Negative for scleral icterus Neck supple Neck Narrative: No nuchal rigidity or meningeal signs Resp normal respiratory effort and clear to auscultation bilaterally Cardio regular rhythm Rate: tachycardic and other Other Details: Tachycardic rate with regular rhythm No murmurs rubs or gallops Radial and carotid pulses are equal and symmetric GI non-distended and no masses GI Narrative: Soft and nondistended with hyperactive bowel sound There is mild diffuse pain with palpation without voluntary guarding or rigidity No pulsatile mass or fluid wave Auscultation: hyperactive bowel sounds Palpation: soft Extremity Extremity Narrative: Patient has track huff in the upper extremity consistent with history of IV drug use but no signs of secondary infection such as abscess or cellulitis All compartments are soft and compressible going against compartment syndrome Neuro oriented x3, CN's II-XII intact bilaterally and no sensory deficits noted Sensorium / Orientation: alert Motor Exam: strength 5/5 throughout Psych mental status grossly normal Skin no rashes or lesions noted Skin Narrative: Track huff to the extremities without secondary findings of infection as documented above General Skin Exam: Negative for jaundice or pallor MDM MDM MDM Narrative Medical decision making narrative: Patient arrived to ER hypertensive and tachycardic and this correlates with his history and exam showing findings of opioid withdrawal. Patient was informed that opioid drawl is not life-threatening but as he is experiencing symptoms and is requesting detox basic labs will be obtained in order to rule out acute kidney injury or clinically significant electrolyte abnormality. Blood work showed leukocytosis at 15.7 but this is most likely stress response from the withdrawal as his physical exam does not reveal any overt signs of infection. Talk screen is positive for opiates as well as methamphetamines and marijuana. Because he was displaying withdrawal symptoms he was given IV fluids IV Benadryl Compazine and oral clonidine. In order to continue treatment for withdrawal the hospitalist was contacted and he agrees to accept the patient to the floor for continued monitoring and treatment of his opioid use History & Record Review Discussion w/independent historian: Patient Lab Data Attestation: I reviewed the patient's lab results. Labs: Laboratory Results - last 24 hr 06/10/25 01:22 WBC 15.7 H RBC 4.93 Hgb 14.3 Hct 42.1 MCV 85.4 MCH 29.0 MCHC 34.0 RDW Std Deviation 45.9 H RDW Coeff of Marilynn 14.8 H Plt Count 705 H MPV 9.7 Immature Gran % (Auto) 0.300 Neut % (Auto) 78.6 H Lymph % (Auto) 16.8 L [place] % (Auto) 3.8 Eos % (Auto) 0.1 Baso % (Auto) 0.4 Absolute Neuts (auto) 12.3 H Absolute Lymphs (auto) 2.64 Nucleated RBC % 0 Sodium 142 Potassium 4.1 Chloride 103 Carbon Dioxide 21.8 Anion Gap 17 H BUN 17 Creatinine 1.22 H Estim Creat Clear Calc 97.16 Est GFR (MDRD) Non-Af 77 BUN/Creatinine Ratio 14.1 Glucose 108 H Calcium 10.0 Total Bilirubin 0.57 AST 25 ALT 13 Alkaline Phosphatase 107 Total Protein 8.4 Albumin 4.6 Globulin 3.8 Albumin/Globulin Ratio 1.2 Urine Opiates Screen PRESUMPTIVE POSITIVE U Buprenorphine Qual NEGATIVE Ur Oxycodone Screen NEGATIVE Urine Methadone Screen NEGATIVE Urine Fentanyl Screen PRESUMPTIVE POSITIVE Ur Barbiturates Screen NEGATIVE Ur Phencyclidine Scrn NEGATIVE Ur Amphetamines Screen PRESUMPTIVE POSITIVE U Benzodiazepines Scrn NEGATIVE Urine Cocaine Screen NEGATIVE U Cannabinoids Screen PRESUMPTIVE POSITIVE Ethyl Alcohol < 10.1 Management Discussion w/another healthcare provider: Hospitalist Discharge Plan Dx/Rx/DC Orders Clinical Impression: Opioid abuse, IVDU (intravenous drug user), Opioid withdrawal, Desire for detoxification Disposition Disposition: Acute Care Hospital [facility]
--- OUTSIDE RECORDS SUMMARY | 2025-06-10 02:10 | XMS RPT_ITS | CCD ---
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 Visit: Opiate Dependence; requesting Suboxone Identifying Info: 38 yo caucasion male; from of 20 yrs; 3 children in custody of his mom; [employer] in [place], [place] Unemployed but has pending job at former employer at [employer] [place]. Currently homesless; sheltering at friend's house. 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 Some methamphetamine, but not consistent Uses to prevent w/drawal. 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 OAARS REVIEWED INDICATING SBXNE SCRIPT FILLED IN JANUARY PER [facility] Exam: Pleasant gentleman; polite; dressed casually; good [...] w/d) 8mg bid thereafter Script phoned to [facility] in [place]: suboxone 8mg films: #18 NO refills Return to office on May 08 at 12 noon documented in this encounter [facility] 04-30-2024 History of Presen t illness Narrative Matt Matt 1985 First VISIT: April 30, 2024 Reason for Visit: Opiate Dependence; requesting Suboxone Identifying Info: 38 yo caucasion male; from of 20 yrs; 3 children in custody of his mom; [employer] in [place], [place] Unemployed but has pending job at former employer at [employer] [place]. Currently homesless; sheltering at friend's house. 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 Some methamphetamine, but not consistent Uses to prevent w/drawal. 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 OAARS REVIEWED INDICATING SBXNE SCRIPT FILLED IN JANUARY PER [facility] Exam: Pleasant gentleman; polite; dressed casually; good [...] w/d) 8mg bid thereafter Script phoned to [facility] in [place]: suboxone 8mg films: #18 NO refills Return to office on May 08 at 12 noon documented in this encounter [facility] 04-26-2022 Note HNO ID: [id number] Author: Aracely Nieves, OD Service: ? Author Type: PARAEDUCATOR Type: Progress Notes Filed: 03/21/2022 2:00 PM [...] Nieves, OD March 21, 2022 1:58 PM [facility] 03-21-2022 Note HNO ID: [id number] Author: Shavon Gibson APRN.GUILLOTINE TRIMMER Service: ? Author Type: Nurse Practitioner Type: [...] today, concerns for intraocular abnormality. Shavon Gibson APRN.GUILLOTINE TRIMMER [facility] 03-21-2022 History of Presen t illness Narrative [...] 2022 1:58 PM documented in this encounter [facility] 03-21-2022 History of Presen t illness Narrative [...] maldonado, concerns for intraocular abnormality. Shavon Gibson APRN.GUILLOTINE TRIMMER documented in this encounter [facility] 02-20-2022 Miscellaneous Notes Patient is requesting omeprazole [...] to the pharmacy. Please call patient at: [phone] Kristina Osborn Pss documented in this encounter [facility] Evaluation note Diagnosis GERD without esophagitis Esophageal reflux hx IV drug Other, mixed, or unspecified nondependent drug abuse, unspecified documented in this encounter [facility] note* Diagnosis Blurred vision, left eye- Primary Other specified visual disturbances documented in this encounter [facility] note* Diagnosis Abrasion of left cornea, initial encounter- Primary Corneal edema of left eye documented in this encounter [facility] note* Diagnosis Opioid type dependence, continuous (HCC)- Primary Opioid type dependence, continuous documented in this encounter [facility] note* Diagnosis Opioid type dependence, continuous (HCC)- Primary Opioid type dependence, continuous documented in this encounter [facility] note* Diagnosis Opioid dependence in remission (HCC) Opioid type dependence, in remission documented in this encounter [facility] note* Diagnosis Opioid dependence in remission (HCC)- Primary Opioid type dependence, in remission documented in this encounter [facility] note* Diagnosis Opioid type dependence, continuous (HCC) Opioid type dependence, continuous documented in this encounter [facility] Summary Purpose Family History No Family History [...] section and content) DATE CREATED AUTHOR 05/18/2018 [facility] ([place]) DATE CREATED AUTHOR AUTHOR'S ORGANIZ ATION 09/03/2021 [facility] DATE CREATED AUTHOR AUTHOR'S ORGANIZ ATION 01/08/2022 [facility] DATE CREATED AUTHOR AUTHOR'S ORGANIZ ATION 04/01/2022 [facility] DATE CREATED AUTHOR AUTHOR'S ORGANIZ ATION 09/19/2024 [facility] Source Comments (unrecognize d section and content) In the event this informatio n is protected by the Federal Confidentiality of Alcohol and Drug Abuse Patient Records regulations: The Federal rules restrict any use of the information to criminally investigate or prosecute any alcohol or drug abuse patient.[facility] the event this information is protected by the Federal Confidentiality of Alcohol and Drug Abuse Patient Records regulations: The Federal rules restrict any use of the information to criminally investigate or prosecute any alcohol or drug abuse patient.[facility] the event this information is protected by the Federal Confidentiality of Alcohol and Drug Abuse Patient Records regulations: The Federal rules restrict any use of the information to criminally investigate or prosecute any alcohol or drug abuse patient.[facility] Reason for Visit (unrecogniz ed section and [...] be seen closer to his home in [place] as transportation is cited for missed visits. 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 [facility] [employer] [facility]. provides no warranty or guarantee of the accuracy or completeness of information in this document.
--- NOTE | 2025-06-10 02:35 | PCM.HP.STD ---
[facility] - General General Date of Admission: 06/10/25 Date of Service: 06/10/25 Chief Complaint: Polysubstance Withdrawal with Desire for Detoxification. HPI Narrative ANDRES CUBA, is a 39 M with a past medical history of being overweight; with BMI of 26.2 this admission, history of hepatitis, history of cholecystectomy, tobacco abuse and chronic opiate abuse; via IVDU and snorting every 4 hours who presents to [facility] ER complaining of opiate withdrawal and desire for detoxification. Mr. Cuba reports his symptoms began approximately 24 hours prior to admission after he last used illicit drugs. He admits to shaking chills with nausea, myalgias and generalized abdominal discomfort with nausea and vomiting productive of bilious emesis. He states he has never attempted rehabilitation in the past. He denies associated fever, runny nose, sore throat, ear pain, chest pain, palpitations, heart racing, lower extremity edema, shortness of breath, cough, diarrhea, dysuria, hematuria, headache or rash. In the ER in the ER he was noted to have a low-grade Fever of 99.3 ?F with Leukocytosis of 15.7K and Thrombocytosis of 705K present on admission but with no obvious source of infection with a UDS positive for fentanyl, amphetamines and cannabinoids. He was then diagnosed with Acute Polysubstance Withdrawal in the setting of Chronic Polysubstance Abuse and he was then admitted to the general medical floor for ongoing care for stay that is expected to extend beyond 2 midnights. [facility] Medical History (Updated 06/10/25 @ 03:[address] Saran Britt, DO) Alcohol abuse Substance abuse Smoker Substance use Hepatitis Home Medications ?Medication ?Instructions ?Recorded ?Last Taken ?Type cephalexin 500 mg capsule 500 mg PO Q6 #40 CAPSULES 05/04/21 Unknown Rx buprenorphine 8 mg-naloxone 2 mg 1 ea sublingual BID 06/10/25 Unknown History sublingual film clonidine HCl 0.1 mg tablet 0.1 mg PO BID PRN PRN insomnia 06/10/25 Unknown History Allergy/AdvReac Type Severity Reaction Status Date / Time No Known Allergies Allergy Verified 06/09/25 23:51 Family History no significant family his Surgical History (Updated 06/10/25 @ 03:41 by Darcie Bee) History of cholecystectomy Social History Smoking Status: Current every day smoker tobacco type: cigarettes ROS ROS Narrative Review of Systems: Constitutional: Patient admits to chills at home was noted to have a low-grade fever of 99.3 ?F present shortly after admission. Eyes: Patient denies change in vision or discharge from eyes. ENT: Patient denies runny nose, sore throat or ear pain. Resp: Patient denies shortness of breath or cough. CV: Patient denies chest pain, palpitations, heart racing or lower extremity edema. GI: Patient admits to generalized abdominal pain with nausea and vomiting productive of bilious emesis as per HPI. : Patient denies dysuria or hematuria. MSK: Patient admits to myalgias but he denies arthralgias. Skin: Patient has evidence of 'track huff' but he denies rash, abscess, wounds or jaundice. Psych: Patient admits to depression and anxiety but he denies SI or HI. Neuro: Patient denies headache, paresthesias or focal neurologic deficits. Allergy: Patient denies lip swelling, tongue swelling or urticaria. Hematology: Patient denies easy bleeding or easy bruisability. Endocrinology: Patient denies polyuria, polydipsia, polyphagia or heat/cold intolerance. 14 point ROS otherwise negative except for positives noted above in HPI. Vital Signs Vital Signs Vital Signs: 06/09/25 23:51 06/09/25 23:51 06/10/25 01:51 Temperature 98 F Temperature Source Temporal Pulse Rate 126 H 131 H 109 H Respiratory Rate 22 H 18 Blood Pressure 174/125 H 181/118 H 144/102 H Blood Pressure Mean 141 139 116 Pulse Ox 98 99 Oxygen Delivery Method Room Air Room Air 06/10/25 02:04 Temperature 99.3 F H Temperature Source Pulse Rate 109 H Respiratory Rate 18 Blood Pressure 144/102 H Blood Pressure Mean 116 Pulse Ox 99 Oxygen Delivery Method Weight Weight: 209 lb 10.554 oz Body Mass Index (BMI) 26.2 Physical Exam Const alert, oriented x3 and average body habitus Constitutional Narrative: Moderate distress noted. General Appearance: cooperative HEENT normocephalic, head/scalp atraumatic and hearing grossly normal bilaterally HEENT Narrative: Mucous membranes dry. Eyes PERRL and EOMs intact bilaterally Neck no lymphadenopathy, supple and no JVD Resp normal respiratory effort, no retractions, no use of accessory muscles and clear to auscultation bilaterally Cardio regular rate and regular rhythm GI normal to inspection, nondistended, normoactive bowel sounds, soft to palpation, non-tender and non-distended Extremity normal to inspection, full ROM and no clubbing, cyanosis or edema Skin Skin Narrative: Patient have evidence of 'track huff' in his antecubital fossae but no evidence of rash. Neuro oriented x3, CN's II-XII intact bilaterally, moves all extremities and no focal motor deficits Sensorium / Orientation: awake, alert, oriented to person, oriented to place and oriented to time Speech: speech normal Psych Mood & Affect: depressed and anxious Results Medical Records Data Attestation: I reviewed the patient's medical records Lab / Micro Data Attestation: I reviewed the patient's lab results. 06/10/25 01:22 06/10/25 01:22 Labs: Laboratory Results - last 24 hr 06/10/25 01:22: WBC 15.7 H, RBC 4.93, Hgb 14.3, Hct 42.1, MCV 85.4, MCH 29.0, MCHC 34.0, RDW Std Deviation 45.9 H, RDW Coeff of Marilynn 14.8 H, Plt Count 705 H, MPV 9.7, Immature Gran % (Auto) 0.300, Neut % (Auto) 78.6 H, Lymph % (Auto) 16.8 L, Coryell % (Auto) 3.8, Eos % (Auto) 0.1, Baso % (Auto) 0.4, Absolute Neuts (auto) 12.3 H, Absolute Lymphs (auto) 2.64, Nucleated RBC % 0, Sodium 142, Potassium 4.1, Chloride 103, Carbon Dioxide 21.8, Anion Gap 17 H, BUN 17, Creatinine 1.22 H, Estim Creat Clear Calc 97.16, Est GFR (MDRD) Non-Af 77, BUN/Creatinine Ratio 14.1, Glucose 108 H, Calcium 10.0, Total Bilirubin 0.57, AST 25, ALT 13, Alkaline Phosphatase 107, Total Protein 8.4, Albumin 4.6, Globulin 3.8, Albumin/Globulin Ratio 1.2, Urine Opiates Screen PRESUMPTIVE POSITIVE, U Buprenorphine Qual NEGATIVE, Ur Oxycodone Screen NEGATIVE, Urine Methadone Screen NEGATIVE, Urine Fentanyl Screen PRESUMPTIVE POSITIVE, Ur Barbiturates Screen NEGATIVE, Ur Phencyclidine Scrn NEGATIVE, Ur Amphetamines Screen PRESUMPTIVE POSITIVE, U Benzodiazepines Scrn NEGATIVE, Urine Cocaine Screen NEGATIVE, U Cannabinoids Screen PRESUMPTIVE POSITIVE, Ethyl Alcohol < 10.1 Micro: [facility] Services [address] [place], [place] [id number] Chest 1 View (Portable) MR#: [id number] Acct: [id number] Name: ANDRES CUBA Rep #: [id number] : 1985 M 39 From: Girish Palomares MD PCP: Care Physician,No Primary Status: ADM IN Study: Chest 1 View (Portable) Date of Exam: 06/10/25 Exam# [id number] Ordering Dr: Saran Britt DO PROCEDURE: CHEST 1 VIEW (PORTABLE) 06/10/2025 REASON FOR EXAM: LEUKOCYTOSIS AND IVDA. EVAL FOR PNA. TECHNIQUE: Frontal view of the chest. COMPARISON: No FINDINGS: Mild scoliosis. Well inflated lungs. No consolidation, effusion or pneumothorax. RAD/Chest 1 View (Portable) IMPRESSION: No acute findings Reading Location: [place] [address] CC: Dr. Saran Britt DO; No Primary Care Physician ~ Brush Loader And Handle Attacher: Signed Imaging [facility] Imaging Services [address] [place] [id number] Chest 1 View (Portable) MR#: [id number] Acct: [id number] Name: ANDRES CUBANE Rep #: [id number] : 1985 M 39 From: Girish Palomares MD PCP: Care Physician,No Primary Status: ADM IN Study: Chest 1 View (Portable) Date of Exam: 06/10/25 Exam# [id number] Ordering Dr: Saran Britt DO PROCEDURE: CHEST 1 VIEW (PORTABLE) 06/10/2025 REASON FOR EXAM: LEUKOCYTOSIS AND IVDA. EVAL FOR PNA. TECHNIQUE: Frontal view of the chest. COMPARISON: No FINDINGS: Mild scoliosis. Well inflated lungs. No consolidation, effusion or pneumothorax. RAD/Chest 1 View (Portable) IMPRESSION: No acute findings Reading Location: [place] [address] CC: Dr. Saran Britt DO; No Primary Care Physician ~ Brush Loader And Handle Attacher: Signed Assessment & Plan Assessment/Plan (1) IVDU (intravenous drug user): (2) Opioid abuse: (3) Opioid withdrawal: (4) Desire for detoxification: (5) Polysubstance abuse: (6) Fever: QUALIFIERS: Fever type: unspecified Qualified Code(s): R50.9 - Fever, unspecified (7) Leukocytosis: QUALIFIERS: Leukocytosis type: unspecified Qualified Code(s): D72.829 - Elevated white blood cell count, unspecified (8) Thrombocytosis: (9) Tobacco abuse: (10) Overweight (BMI 25.0-29.9): PLAN: Plan 1. Acute polysubstance withdrawal with UDS positive for fentanyl, amphetamines and cannabinoids in the setting of chronic polysubstance abuse - Admit to general medical floor for treatment under the opiate withdrawal protocol primarily consisting of Suboxone taper. Polysubstance cessation will be strongly encouraged. Give ondansetron as needed nausea and vomiting. Give promethazine IM as needed breakthrough nausea and vomiting. Give acetaminophen as needed for pain or fever. Finally, we will consult case management see this patient on rounds in the a.m. for further recommendations with help appreciated in advance. 2. Low-grade Fever of 99.3 ?F with Leukocytosis of 15.7 K and Thrombocytosis of 705K all present on admission but with no obvious source of infection complicating #1 - Start empiric IV ceftriaxone while we await results of CXR and UA. Leukocytosis likely due to acute phase reaction. 3. Chronic Tobacco Abuse adding to the burden of disease outlined from #1 & #2 - Tobacco Cessation will be strongly encouraged with Nicotine patch offered to control cravings. 4. Overweight; with BMI of 26.2 this admission - Weight loss will be recommended. Check TSH. 5. History of hepatitis - Noted. 6. History of cholecystectomy - Noted. 7. DVT prophylaxis - Enoxaparin 40 mg sq daily. Total time: Approximately (but not less than) 55 minutes. Charges/Coding Visit Charges Inpatient E&M: 26227 Init Hosp L2
[2025-06-10 03:24] LABS: Magnesium 1.8 mg/dL (1.5-2.2)
[2025-06-10 03:42] LABS: Mucous, Urine 0 SEEN /hpf (<or=2+); Red Blood Cells-Urine 0 SEEN /hpf (0-5); Squamous Epithelial Cells - UA 0 SEEN /hpf (0-5)
[2025-06-10 03:44] LABS: Color, Urine Amber (Yellow); Glucose, Dipstick 50 mg/dl (Normal); Ketone-Dipstick 5 mg/dl (Negative); Leukocyte Esterase-Dipstick 25 /ul (Negative); Nitrite-Dipstick Negative (Negative); Occult Blood-Urine 10 /ul (Negative); Protein-Dipstick 100 mg/dl (Negative); Specific Gravity, Urine 1.020 (1.002-1.030)
--- OUTSIDE RECORDS SUMMARY | 2025-06-10 03:46 | XMS RPT_ITS | CCD ---
Author Organization [facility] Care Team Providers Care Chore Worker Name Role Phone DEMETRIA SANDEEP Unavailable Unavailable Randi OLSON Unavailable Unavailable Aylin Olson PA-C Primary Care Provider [phone] Unavailable Primary Care Provider Unavailsia e CHERRIE BAHENA Attending Unavailable CHERRIE BAHENA Attending Unavailable CHERRIE BAHENA Attending Unavailable CHERRIE BAHENA Attending Unavailable Dr. Marvin Kelly DO Emergency Provider Care Physician, No Primary Primary Care Provider Unavailable Dr. Saran Britt DO Admit Provider Unavail able Dr. Saran Britt DO Attending Provider Unav ailable Medications Current Medications Medication Drug Class(es) Dates Sig (Normalized) Sig (Original) buprenorphine 8 mg / naloxone 2 mg sublingual film (20 sources) Partial Opioid Agonist, Opioid Antagonist Start: 06-10-2025 Buprenorphine-Nal oxone 8-2 mg film Active 1 NMA SL TWICE A DAY June 10, 2025 12:00am Start: 04-30-2024 buprenorphine- naloxone (Suboxone) 8-2 MG per sublingual film Indications: Opioid type dependence, continuous (HCC) Place 1 Film under the tongue 2 times daily. 18 Film 04/30/2024 Active cephalexin 500 mg oral capsule (1 source) Cephalosporin Antibacterial Start: 05-04-2021 take 1 capsule by mouth every six hours Cephalexin 500 MG capsule Active 500 mg PO EVERY 6 HOURS 40 0 May 04, 2021 12:00am cloNIDine hydrochloride 0.1 mg oral tablet (1 source) Central alpha-2 Adrenergic Agonist Start: 06-10-2025 take 1 tablet by mouth twice daily as needed Clonidine Hcl 0.1 mg tablet Active 0.1 mg PO TWICE DAILY NEEDED as needed for insomnia June 10, 2025 12:00am erythromycin 0.005 mg/mg ophthalmic ointment (1 source) [...] on above: Take 1 capsule by mo ut twice daily. traZODone hydrochloride 50 mg oral [...] stone; Translations: [Calculus of kidney] 12-13-2016 Episodic Diseases of white blood cells (2 sources) Leukocytosis; Translations: [Elevated white blood cell count, unspecified] 06-10-2025 Chronic Esophageal disorders (1 source) Gastroesophageal reflux disease without esophagitis; Translations: [Gastro-esophageal reflux disease without esophagitis] Chronic Fever of unknown origin (2 sources) Fever; Translations: [Fever, unspecified] 06-10-2025 Episodic Hepatitis (2 sources) Viral hepatitis; Translations: [Unspecified viral hepatitis without hepatic coma] 08-27-2020 Episodic Open wounds of extremities (1 source) Open wound of forearm; Translations: [Unspecified open wound of unspecified forearm, initial encounter] 01-22-2021 Episodic Other eye disorders (1 source) Edema of cornea of left eye; Translations: [Unspecified corneal edema] Episodic Other nutritional; endocrine; and metabolic disorders (1 source) Hyperbilirubinemia; Translations: [Other disorders of bilirubin metabolism] 08-24-2020 Chronic Other nutritional; endocrine; and metabolic disorders (2 sources) Body mass index 25-29 - overweight; Translations: [Overweight] 06-10-2025 Episodic Poisoning by other medications and drugs (1 source) Overdose of opiate; Translations: [Poisoning by unspecified narcotics, accidental (unintentional), initial encounter] 11-26-2019 Episodic Residual codes; unclassified (2 sources) Tobacco user; Translations: [Tobacco use] 06-10-2025 Episodic Skin and subcutaneous tissue infections (7 sources) Abscess; Translations: [Cutaneous abscess, unspecified] Onset: 07-01-2013 07-01-2013 Episodic Substance-related disorders (20 sources) Continuous opioid dependence; Translations: [Opioid dependence, uncomplicated] Onset: 05-14-2024 Resolved: 09-17-2024 04-30-2024 Chronic Substance-related disorders (6 sources) Intravenous drug user; Translations: [Other psychoactive substance use, unspecified, uncomplicated] Episodic Superficial injury; contusion (1 source) Abrasion of left cornea; Translations: [Injury of conjunctiva and corneal abrasion without foreign body, left eye, initial encounter] Episodic Unclassified (2 sources) Readiness finding 06-10-2025 Past or Other Problems Problem Classification Problem Date Documented Da te Episodic/Chronic Immunizations and screening for infectious disease (3 sources) Positive measurement finding; Translations: [Nonspecific reaction to tuberculin skin test without active tuberculosis] Onset: 06-10-2018 06-10-2018 Episodic Results Test Name Value Interpretation Reference Range Facility Absolute lymphocyte countOrd ered By: Marvin Kelly on 06-10-2025 Lymphocytes Auto (Unsp spec) [#/Vol] 2.64 10*3/uL 0.83-4.51 [facility] Absolute neutrophil countOrd ered By: Marvin Kelly on 06-10-2025 Neutrophils (Bld) [#/Vol] 12.3 10*3/uL High 2.0-7.7 [facility] Amphetamine detection with 1 000 ng/mL as cutoffOrdered By: Marvin Kelly on 06-10-2025 Amphetamines Screen method >1000 ng/mL Ql (U) Positive <1000 ng/mL [facility] Comment on above: If confirmation test ing is needed, a separate order will be required to send out testing to the reference laboratory. Amphetamines Screen method >1000 ng/mL Ql (U) Negative < 200 ng/mL [facility] Anion gap in Serum or Plasma Ordered By: Marvin Kelly on 06-10-2025 Anion gap [Moles/Vol] 17 mmol/L High 5-15 [facility] Automated lymphocyte count a s percentage of total leukocytesOrdered By: Marvin Kelly on 06-10-2025 Lymphocytes/100 WBC Auto (Unsp spec) 16.8 % Low 19-41 [facility] BUN/creatinine ratioOrdered By: Marvin Kelly on 06-10-2025 Urea nitrogen/Creatinine [Mass ratio] 14.1 mg/mg 10-20 [facility] Basophil percentageOrdered B y: Marvin Kelly on 06-10-2025 Basophils/100 WBC (Bld) 0.4 % 0-1 [facility] Bilirubin, totalOrdered By: Marvin Kelly on 06-10-2025 Bilirubin [Mass/Vol] 0.57 mg/dL 0.00-1.30 [facility] Carbon dioxide, total [Moles /volume] in Central venous bloodOrdered By: Marvin Kelly on 06-10-2025 CO2 [Moles/Vol] 21.8 mmol/L 21.0-32.0 [facility] Chloride assayOrdered By: Sarah Kelly on 06-10-2025 Chloride [Moles/Vol] 103 mmol/L 98-108 [facility] Eosinophil percentageOrdered By: Marvin Kelly on 06-10-2025 Eosinophils/100 WBC (Bld) 0.1 % 0-5 [facility] Erythrocyte distribution wid th ratioOrdered By: Marvin Klely on 06-10-2025 Erythrocyte distribution width (RBC) [Ratio] 14.8 % High 11.6-14.6 [facility] Erythrocyte distribution wid th standard deviationOrdered By: Marvin Kelly on 06-10-2025 Erythrocyte distribution width (RBC) [Ratio] 45.9 fl High 35.1-43.9 [facility] Glomerular filtration rate ( GFR) estimation/1.73 sq m using serum, plasma, or whole bOrdered By: Marvin Kelly on 06-10-2025 GFR/1.73 sq M.predicted among non-blacks MDRD (S/P/Bld) [Vol rate/Area] 77 mL/min/{1.73_m2} >60 [facility] Comment on above: mL/min/1.73m2 CKD-EP I Creatinine Equation (2020) Hematocrit Auto (Bld) [Volum e fraction]Ordered By: Marvin Kelly on 06-10-2025 Hematocrit (Bld) [Volume fraction] 42.1 % 40-54 [facility] Hemoglobin measurementOrdere d By: Marvin Kelly on 06-10-2025 Hemoglobin (Bld) [Mass/Vol] 14.3 g/dL 13.0-16.5 [facility] Immature granulocytes/100 WB C Auto (Bld)Ordered By: Marvin Kelly 06-10-2025 Immature granulocytes/100 WBC (Bld) 0.300 % 0.0-0.9 [facility] Comment on above: IG% - Immature Granu locytes (promyelocytes, myelocytes and metamyelocytes) > 1% indicates that a LEFT SHIFT is Present. Laboratory - Chemistry and C hemistry - challengeOrdered By: Marvin Kelly on 06-10-2025 AST [Catalytic activity/Vol] 25 U/L <38 [facility] MCV (mean corpuscular volume ) determinationOrdered By: Marvin Kelly on 06-10-2025 MCV (RBC) [Entitic vol] 85.4 fL 80-94 [facility] Mean corpuscular hemoglobin (MCH) determinationOrdered By: Marvin Kelly on 06-10-2025 MCH (RBC) [Entitic mass] 29.0 pg 27.0-32.0 [facility] Mean corpuscular hemoglobin concentration (MCHC) determinationOrdered By: Marvin Kelly on 06-10-2025 MCHC (RBC) [Mass/Vol] 34.0 g/dL 32-36 [facility] Mean platelet volume determi nationOrdered By: Marvin Kelly on 06-10-2025 Platelet mean volume (Bld) [Entitic vol] 9.7 fL 6.2-12.0 [facility] Monocyte percentageOrdered B y: Marvin Kelly on 06-10-2025 Monocytes/100 WBC (Bld) 3.8 % 0-10 [facility] Neutrophil percentageOrdered By: Marvin Kelly on 06-10-2025 Neutrophils/100 WBC (Bld) 78.6 % High 47-70 [facility] No Panel InformationOrdered By: Marvin Kelly on 06-10-2025 Urine Buprenorphine Qualitative Negative < 200 ng/mL [facility] Urine Oxycodone Screen Negative < 100 ng/mL [facility] Nucleated red blood cell per centageOrdered By: Marvin Kelly on 06-10-2025 Nucleated RBC/100 WBC (Bld) [Ratio] 0 % 0-5 [facility] Platelet countOrdered By: Sarah Kelly on 06-10-2025 Platelets (Bld) [#/Vol] 705 10*3/uL High 150-450 [facility] Potassium measurement (mass/ volume)Ordered By: Marvin Kelly on 06-10-2025 Potassium (Unsp spec) [Mass/Vol] 4.1 mmol/L 3.3-5.1 [facility] Comment on above: Hemolysis present, R esults could be affected. Quantitative urine opiates m easurementOrdered By: Marvin Kelly on 06-10-2025 Opiates Ql (U) Positive < 300 ng/mL [facility] Comment on above: If confirmation test ing is needed, a separate order will be required to send out testing to the reference laboratory. RBC Auto (Bld) [#/Vol]Ordere d By: Marvin Kelly on 06-10-2025 RBC (Bld) [#/Vol] 4.93 10*6/uL 4.6-6.2 [facility] Screening urine fentanyl hailee surementOrdered By: Marvin Kelly on 06-10-2025 fentaNYL Screen Ql (U) Positive [facility] Comment on above: If confirmation test ing is needed, a separate order will be required to send out testing to the reference laboratory. Serum creatinine measurement (mass/volume)Ordered By: Marvin Kelly on 06-10-2025 Creatinine [Mass/Vol] 1.22 mg/dL High 0.70-1.20 [facility] Serum globulin measurementOr dered By: Marvin Kelly on 06-10-2025 Globulin (S) [Mass/Vol] 3.8 g/dL 2.2-4.2 [facility] Serum glucose measurement (m ass/volume)Ordered By: Marvin Kelly on 06-10-2025 Glucose [Mass/Vol] 108 mg/dL High 70-99 [facility] Serum or plasma alanine norman otransferase (ALT) measurementOrdered By: Marvin Kelly on 06-10-2025 ALT [Catalytic activity/Vol] 13 U/L <47 [facility] Serum or plasma albumin renita urement (mass/volume)Ordered By: Marvin Kelly on 06-10-2025 Albumin [Mass/Vol] 4.6 g/dL 3.5-5.0 [facility] Serum or plasma albumin/glob ulin mass ratioOrdered By: Marvin Kelly on 06-10-2025 Albumin/Globulin [Mass ratio] 1.2 {ratio} 0.9-2.4 [facility] Serum or plasma alkaline tye sphatase measurementOrdered By: Marvin Kelly on 06-10-2025 ALP [Catalytic activity/Vol] 107 U/L 40-129 [facility] Serum or plasma calcium renita urement (mass/volume)Ordered By: Marvin Kelly on 06-10-2025 Calcium [Mass/Vol] 10.0 mg/dL 7.6-11.0 [facility] Serum or plasma ethanol renita urement (mass/volume)Ordered By: Marvin Kelly on 06-10-2025 Ethanol [Mass/Vol] mg/dL <10.1 [facility] Comment on above: This test is for med ical purposes only. The legal definition of intoxication varies according to local law. Serum or plasma urea nitroge n measurement (mass/volume)Ordered By: Marvin Kelly on 06-10-2025 Urea nitrogen [Mass/Vol] 17 mg/dL 4-19 [facility] Sodium levelOrdered By: Korey Kelly on 06-10-2025 Sodium [Moles/Vol] 142 mmol/L 133-145 [facility] Total proteinOrdered By: Jean Kelly on 06-10-2025 Protein [Mass/Vol] 8.4 g/dL 5.9-8.4 [facility] Urine benzodiazepine levelOr dered By: Marvin Kelly on 06-10-2025 Benzodiazepines Ql (U) Negative < 200 ng/mL [facility] Urine cocaine levelOrdered B y: Marvin Kelly on 06-10-2025 Cocaine Ql (U) Negative < 300 ng/mL [facility] Urine ighrt-7-tgahgczxmrseze abinol (THC) measurementOrdered By: Marvin Kelly on 06-10-2025 Cannabinoids Screen Ql (U) Positive < 50 ng/mL [facility] Comment on above: If confirmation test ing is needed, a separate order will be required to send out testing to the reference laboratory. Urine phencyclidine (PCP) de tectionOrdered By: Marvin Kelly on 06-10-2025 Phencyclidine Ql (U) Negative < 25 ng/mL [facility] White blood cell (WBC) count Ordered By: Marvin Kelly on 06-10-2025 WBC (Bld) [#/Vol] 15.7 10*3/uL High 4.4-11.0 [facility] 36on 09-17-2024 36 talked with Matt, advised script called in on 09/13 for bridge supply to today; advised to go to [facility] as it's closer; note in chart Received: Today ANTWAN John CNP Caller: Unspecified (Today, 2:22 PM) [facility] 36 Name of Caller: Matt Contact Reason for [...] need, if any: n/a Medication Name: nA [facility] Progress Noteon 09-17-2024 Progress Note September 17, 2024 Phone Contact Scheduled for office visit today; called 30 prior to scheduled time to say he could not find transportation. Last in office visis in April & June; Missed May, July & visit scheduled for September 10 & now, September 17 (4 office visits) Refills for Suboxone phoned in several times to [facility] [place]; at one point, he insisted on flim over pills which raises some concern. Refill for # 12 Subxone films called in to [facility] on September 13 to bridge to this appointment (Sep 17) Prior script phoned on Aug 15, # 70 suboxone films prescribed. In talking with him today, he tells me he did not receive the # 12 films, apparently was waiting for [facility] to alert him (??). We discussed the difficulties getting transportation to be seen here in office; that virtual/phone visits can be arranged ONLY after several months of compliance with treatment program and in office visits/tox screens. Informed that I would not be able to continue seeing him for MAT Recommended he be seen at [place] for continued MAT with Dr Esquivel; Offered to provide contact number, but he reports he knows where [facility] is located, Advised that suboxone script should be waiting at [facility], which will bridge till he sees staff at [facility]. Will inform our office technologist/coordinator to proceed with sending letter. Cherrie Bahena APRN [facility] Progress Noteon 09-13-2024 Progress Note September 13, 2024Sunday Phoned to [facility] SBXNE 8/2mg; Film # 12: NO R: Si in am/1/2 in [place] to next OFFICE Appointment; NOTE: Transportation is an issue; if unable to make next office devyn't. September 17, he will need to arrange f/up care at [address] [place] [address], which is closer to home Cherrie Bahena APRN [address] 09-12-2024 36 Ordering provider: Cherrie YOU Date of last office visit: 08.13.24 Date of next office visit: 09.17.24 Updated/Validated preferred pharmacy: Yes Patient instructed to contact the pharmacy prior to picking up the medication: Yes (1) Medication name: buprenorphine-naloxon e (Suboxone) 8-2 MG per sublingual film Medication [...] TABLET. PT STATES HE TAKE 2.[address] 09-10-2024 36 Ordering provider: Cherrie Bahena Date of last office visit: 08.13.24 Date of next office visit: 09.17.24 Updated/Validated preferred pharmacy: Yes Patient instructed to contact the pharmacy prior to picking up the medication: Yes (1) Medication name: buprenorphine-naloxon e (Suboxone) 8-2 MG per sublingual film Medication [...] TABLET. PT STATES HE TAKE 2.[address] 08-15-2024 36 Left message for patient at [phone] number give to call patient at when called [phone]. Provider informed pharmacy to switch medication to films. [facility] Progress Noteon 08-15-2024 Progress Note Aug 15, 2024; Matt called to report script was incorrectly ordered for tabs; unable to take tabs Pharmacy called to change: To [facility] pharmacy/[place] [phone]: Suboxone 8/2mg strips # 70 NO R Si strips in am; 1/2 in PM Cherrie Bahena APRN [facility] 36on 08-14-2024 36 Name of caller: Matt Contact phone number: [phone] Relationship to Patient: patient Provider: Cherrie Bahena APRN [facility] Chief Complaint/Reason for Call: Matt stated the script for buprenorphine-naloxon e (Suboxone) 8-2 MG per sublingual film was filled, but was filled with tablets instead of film. Please correct script with pharmacy or call Matt to advise. Best time of day caller can be reached: Any Patient advised that office/PCP has 24-48 business hours to return their call: No [facility] PATINSon 08-13-2024 PATINS Return August for Tox screen in office visit [facility] Progress Noteon 08-13-2024 Progress Note NAME: Matt Matt 1985 Date: Aug 13, 2024 Fourth Visit PHONE VISIT: [phone] (inlaw's #) Reason for Visit: Outpatient followup [...] 2 in am; 1/2 in pm Begin [place] tabs/colace/PRN dulcolax Next Visit: September 10 in office with tox screen collection Advised to OTC: dulcolax PRN, Senna bid Metamucil DAILY Suppository PRN Labs: Med Ass't Panel: + sbxne To [facility] pharmacy/[place] [phone]: Suboxone 8mg tabs: # 70 NO R [...] stated that they are currently in the [facility]. If the patient is a minor, permission has been obtained by the parent or guardian for the patient to receive medical care at this visit. Normal [facility] MEDICATION ASSISTED TREATMEN T PANELOrdered By: Linette Vu on 07-09-2024 Amphetamines Ql (U) Negative Negative [facility] Barbiturates screen method Nom (U) Negative Negative [facility] Benzodiazepines screen method Nom (U) Negative Negative [facility] BUPRENORPHINE SCREEN Positive Negative [facility] Cocaine Ql (U) Negative Negative [facility] Ethanol [Mass/Vol] Negative Negative [facility] FENTANYL Negative Negative [facility] Methadone Ql (U) Negative Negative [facility] Opiates Screen Ql (U) Negative Negative [facility] OXYCODONE/OXYMORPHONE Negative Negative [facility] PCP Negative Negative [facility] THC Negative Negative [facility] The expected value for the drugs listed above is Negative. The following drugs or drug groups have been screened for by Immunoassay at the following thresholds: Amphetamine class(1000ng/mL) Barbituates(200ng/mL) Benzodiazepines(200ng /mL) Cocaine(300ng/mL) Ethanol (50 ng/mL) Methadone(300ng/mL) Opiates(300ng/mL) Oxycodone(100ng/mL) PCP(25ng/mL) Buprenorphine(5ng/mL) THC(50ng/mL) Fentanyl(1ng/mL) Positive results are NOT confirmed by a more specific alternative method unless requested. If confirmation is needed, request confirmation under separate order. NOTE: These results are for medical treatment only. Analysis performed using non-forensic procedures. [facility] MEDICATION ASSISTED TREATMEN T PANELon 07-09-2024 Amphetamines Ql (U) Negative Normal Negative [facility] Comment on above: Performed By: #### L [id number] ####Applied Behavior [employer] Specialist: ADÁN DEAL ([id number])[facility] ([facility])[address] [place] [address] BARBITURATES Negative Normal Negative [facility] Comment on above: Performed By: #### L [id number] ####Applied Behavior [employer] Specialist: ADÁN DEAL ([id number])[facility] ([facility])[address] [place] [address] Benzodiazepines Ql (U) Negative Normal Negative [facility] Comment on above: Performed By: #### L [id number] ####Applied Behavior Science Specialist: ADÁN DEAL ([id number])[facility] ([facility])[address] [place] [address] BUPRENORPHINE SCREEN Positive Normal Negative [facility] Comment on above: Performed By: #### L [id number] ####Applied Behavior Science Specialist: ADÁN DEAL ([id number])[facility] ([facility])[address] [place] [address] [place] Cocaine Ql (U) Negative Normal Negative [facility] Comment on above: Performed By: #### L [id number] ####Applied Behavior Science Specialist: ADÁN DEAL ([id number])[facility] ([facility])[address] [place] [address] ETHANOL-ETOHO Negative Normal Negative [facility] Comment on above: Result Comment: ORDE R COMMENTS: The expected value for the drugs [...] using non-forensic procedures. Performed By: #### L [id number] ####Applied Behavior Science Specialist: ADÁN DEAL ([id number])[facility] ([facility])[address] [place] [address] FENTANYL Negative Normal Negative [facility] Comment on above: Performed By: #### L [id number] ####Applied Behavior Science Specialist: ADÁN DEAL ([id number])[facility] ([facility])[address] [place] [address] Methadone Ql (U) Negative Normal Negative [facility] Comment on above: Performed By: #### L [id number] ####Applied Behavior Science Specialist: ADÁN DEAL ([id number])[facility] ([facility])[address] [place] [address] Opiates Ql (U) Negative Normal Negative [facility] Comment on above: Performed By: #### L [id number] ####Applied Behavior Science Specialist: ADÁN DEAL ([id number])[facility] ([facility])[address] [place] [address] OXYCODONE/OXYMORPHONE Negative Normal Negative [facility] Comment on above: Performed By: #### L [id number] ####Applied Behavior Science Specialist: ADÁN DEAL ([id number])[facility] ([facility])[address] [place] [address] PCP Negative Normal Negative [facility] Comment on above: Performed By: #### L [id number] ####Applied Behavior Science Specialist: ADÁN DEAL ([id number])[facility] [place] [address] THC-MTTHC Negative Normal Negative [facility] Comment on above: Performed By: #### L [id number] ####Applied Behavior Science Specialist: ADÁN DEAL ([id number])[address] Office Visiton 07-09-2024 Follow-up visit [id number] Matt Matt 1985 M Date Provider Department Center 07/09/2024 [id number], [facility] ACD- None No family history on file Level of Service:75336 [place] OFFICE/OUTPATIENT ESTABLISHED MOD MDM 30 MIN Reason for Visit and Comments: Drug Problem [37] - Opiate dependence in remission Normal [facility] Progress Noteon 07-09-2024 Progress Note NAME: Matt [...] even; Plan: Continue suboxone 8mg bid Begin [place] tabs/colace/PRN dulcolax Next Visit: August 13 PHONE VISIT 2PM Advised to OTC: dulcolax PRN, Senna bid Metamucil DAILY Suppository PRN Labs: Med Ass't Panel collected today; To [facility] pharmacy/[place] [phone]: Suboxone 8mg tabs: # [address] [facility] 36on 06-27-2024 36 LVM Provider states patient can be scheduled for 07/09/2024 and will send 10 day rx until appointment. Secure chat sent. Hi, this patient needs to come in, can he come in 07/02/24 at 1pm? he will be out of meds and he missed his last appt it shows you in-patient at 1pm 18 mins RH Cherrie Bahena, ACCOUNTING CLERK - FILM SOUND ENGINEER Not on 07/02; ask him if 07/09 would work; I will phone script in for a 10 day supply (06/30 - 07/09) [facility] 36 Reached out to number, patient left for call back [phone] . Number is daughters and she was at work, stated she would call her mom to see if she could have patient return call. Cherrie Kim has openings Sunday. Patient missed 06/18/24 appt will need to go to ED for daily dosing or message to Cherrie can be sent. [facility] Progress Noteon 06-27-2024 Progress Note Script called to [facility] pharmacy for Suboxone 8/2 mg films # 28; No Refill; Next office devyn't on Jul 09. Cherrie Bahena [facility] 36on 06-25-2024 36 Name of Caller: Matt Matt Contact Reason [...] you call the daughter Soni's phone at [phone] and leave a message. . Pt is requesting a call back to schedule please advise. Office Name: Behavioral health Medication Refills need, if any: Yes Medication Name: Suboxone [facility] 36on 05-28-2024 36 Called pt- straight to voicemail and inbox full. [facility] 36 Called pt- straight to voicemail, inbox full. Unable to leave message. If pt calls back please see TE from 05/27/24 for message to release to pt. [facility] 36on 05-27-2024 36 Name of caller: Matt Matt Contact phone number: [phone] Relationship to Patient: patient Provider: Cherrie Bahena CNP Practice: [facility] location Chief Complaint/Reason for Call: 05/27/24 Pt asking for refill medication buprenorphine-naloxon e (Suboxone) 8-2 MG per sublingual film Pt stated CANNOT have tablets on this medication pt would like a call back to discuss pls advise Best time of day caller can be reached: AM Patient advised that office/PCP has 24-48 business hours to return their call: Yes [facility] 36 Called pt- no answer and voicemail box full. [facility] Progress Noteon 05-27-2024 Progress Note Script phoned to [facility] [phone] for # 60 subxne films 8/2mg # 60; NO R; Next office devyn't on June 18, 2024 [place] [address]on 05-26-2024 36 S: Patient spoke wit h [facility] nurse regarding medication refill- Withdrawal symptoms B: Medication: buprenorphine-naloxon e (Suboxone) 8-2 MG A: Pt calling in asking for the tablets to be changed to sublingual film, states unable to take tablets. Patient called in last week. Pt c/o aches, pains, constipation. Did have very small BM yesterday with some bleeding. States pharmacy needs approval to switch to the film. [facility] nurse called pharmacy to clarify all that is needed. 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 need, if any: No Medication Name: None [facility] [id number] Telephone encounter Note* Telephone Encounter - Ciera Mchugh RN - 04/30/2024 5:25 PM EDT S: Patient spoke with CAC nurse regarding [...] triager answers question Protocols used: Medication Question Mwwp-ZNIFQ-EM [facility] [id number] Miscellaneous Notes* Telephone Encounter - Ciera Mchugh RN - 04/30/2024 5:25 PM EDT S: Patient spoke with CAC nurse regarding [...] triager answers question Protocols used: Medication Question Rsab-UXOYT-QQ documented in this [facility]06-05-2024 History of Present illness Narrative* Cherrie Bahena, ANTWAN - ROSA ISELA - 04/30/2024 1:30 PM EDT Matt Matt 1985 First VISIT: April 30, 2024 Reason for Visit: Opiate Dependence; requesting Suboxone Identifying Info: 38 yo caucasion male; from of 20 yrs; 3 children in custody of his mom; [place] [employer] [place] in [place], [place] Unemployed but has pending job at former employer at [employer] [place]. Currently homesless; sheltering at friend's house. 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 Some methamphetamine, but not consistent Uses to prevent w/drawal. Denies Current use of alcohol, bzo's, cad designer drafter substances; Some methamphetamine Denies seizure hx Denies opiate overdoses LAST use: 8 hrs ago (uncertain qty) to avoid w/drawal Goal is to keep opiate dependence in remission with suboxone stabilization, return to work, reconnect with family. OAARS REVIEWED INDICATING SBXNE SCRIPT FILLED IN JANUARY PER [facility] Exam: Pleasant gentleman; polite; dressed casually; [...] w/d) 8mg bid thereafter Script phoned to [facility] in [place]: suboxone 8mg films: #18 NO refills Return to office on May 08 at 12 noon documented in this [facility] History of Present illness Narrative* ANTWAN John CNP - 04/30/2024 1:30 PM EDT Matt Matt 1985 First VISIT: April 30, 2024 Reason for Visit: Opiate Dependence; requesting Suboxone Identifying Info: 38 yo caucasion male; from of 20 yrs; 3 children in custody of his mom; [employer] in [place], [place] Unemployed but has pending job at former employer at [employer] [place]. Currently homesless; sheltering at friend's house. 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 Some methamphetamine, but not consistent Uses to prevent w/drawal. Denies Current use of alcohol, bzo's, cad designer drafter substances; Some methamphetamine Denies seizure hx Denies opiate overdoses LAST use: 8 hrs ago (uncertain qty) to avoid w/drawal Goal is to keep opiate dependence in remission with suboxone stabilization, return to work, reconnect with family. OAARS REVIEWED INDICATING SBXNE SCRIPT FILLED IN JANUARY PER [facility] Exam: Pleasant gentleman; polite; dressed casually; [...] unable to refrain/stop despite multiple treatments and inthe face of significant legal/social effects.. He exhibits [...] w/d) 8mg bid thereafter Script phoned to [facility] in [place]: suboxone 8mg films: #18 NO refills Return to office on May 08 at 12 noon documented in this [facility]04-26-2022 NoteHNO ID: [id number] Author: Aracely Nieves, OD Service: ? Author Type: FRINGE WEAVER Type: Progress Notes Filed: 03/21/2022 2:00 PM [...] Aracely Nieves, OD March 21, 2022 1:58 [facility]04-26-2022 NoteHNO ID: [id number] Author: Shavon Gibson APRN.FILM SOUND ENGINEER Service: ? Author Type: Nurse Practitioner Type: [...] ICD10: H53.8 [address]oint[address] made with eye dr joel, concerns for intraocular abnormality. Shavon Gibson APRN.[facility]04-26-2022 History of Present illness Narrative* Aracely Nieves, COLIN - 03/21/2022 1:58 PM EDT 1. Abrasion of left cornea, initial encounter [...] any new or worsening problems Aracely Nieves, COLIN March 21, 2022 1:58 PM documented in this encounterC[facility]04-26-2022 History of Present illness Narrative* Shavon Gibson APRN.FILM SOUND ENGINEER - 03/21/2022 1:25 PM EDT Subjective HPI HPI Matt Matt is a 36 year old male who presents today for CC of left eye pain, blurred vision. This started 2 dasys. Has tried otc eye drops without relief. Symptoms are worsened by nothing .Denies injury, redness, drainage. .Patient presents with: Eye [...] ICD10: H53.8 Appointment made with eye dr joel, concerns for intraocular abnormality. Shavon Gibson APRN.ROSA ISELA documented in this encounterCleveland Clinic [facility] Hospital03-28-2022 Miscellaneous Notes* Telephone Encounter - Kristina Osborn Pss - 02/20/2022 8:47 AM EDT Patient is requesting omeprazole because tums are not working. He would like a return call to know if rx was approved and sent. * Telephone Encounter - Kristina Rowland - 02/20/2022 8:46 AM EDT Patient has been identified by name and date of : Yes Pending Prescriptions Disp Refills OMEPRAZOLE 20 MG CAPSULE,DELAYED RELEASE 30 capsule 5 Sig: Take 1 capsule by mouth twice daily. JULIEN: No ROBERTO CARLOS-09/13/20 Labs-08/27/20 NOV-none med filled-12/09/19 RX INSTRUCTIONS: Patient requesting a call when RX is approved and sent to the pharmacy. Please call patient at: [phone] Kristina Osborn Pss documented in this encounterCleveland Clinic Hillcrest HospitalDischarge summary Author Marvin Kelly [facility] Note Date/Time June 10, 2025 2:25 am [facility] Medical Records Department [address] [place] [address] Emergency Department Summary 06/10/25 MR#: [id number] Acct: [id number] Name: MATT MATT Rep #:[id number] : 1985 39 From: Marvin Kelly DO PCP: Care Physician,No Primary Status :ADM IN Location: [facility] [id number] HPI History of Present Illness Chief Complaint: Substance Abuse Informant: patient Narrative Narrative: Patient is a 39-year-old male who reports a longstanding history of heroin/opioid abuse. He states he will inject or snort the drug almost every 4 hours. He states he last used approximately 24 hours ago. He states he is never attempted rehab in the past. At this time he is complaining of shaking chills with nausea and abdominal discomfort. He states that he would like to stop using at this time in order to help prevent withdrawal symptoms comes to the ER for evaluation [facility] Medical History Substance use Hepatitis Home Medications ?Medication ?Instructions ?Recorded ?Last Taken ?Type cephalexin 500 mg capsule 500 mg PO Q6 #40 CAPSULES Unknown Rx buprenorphine 8 mg-naloxone 2 mg 1 ea sublingual BID 0 06/10/25 Unknown History sublingual film clonidine HCl 0.1 mg tablet 0.1 mg PO BID PRN PRN inso mnia 06/10/25 Unknown History Allergy/AdvReac Type Severity Reaction Status Date / Time No Known Allergies Allergy Verified 06/09/25 23:51 Family History no significant family his Social History Smoking Status: Current every day smoker tobacco type: cigarettes ROS ROS ED Constitutional Constitutional ED: Reports chills, subjective and sweats; Denies fever(s) ENT ENT ED: Denies sore throat Cardiovascular Cardiovascular: Denies chest pain Respiratory/Chest Respiratory/Chest: Denies cough or dyspnea Gastrointestinal Gastrointestinal: Reports abdominal pain, nausea and vomiting; Denies diarrhea Genitourinary Genitourinary ED: Denies dysuria Musculoskeletal Musculoskeletal: Reports myalgias Integumentary Denies rash Neurologic Neurologic: Denies headache(s) Hematologic/Lymphatic Hematologic/Lymphatic: Denies easy bleeding or easy bruising EXAM Physical Exam Const Vital Signs: 06/09/25 23:51 06/09/25 23:51 06/10/25 01:51 Temperature 98 F Temperature Source Temporal Pulse Rate 126 H 131 H 109 H Respiratory Rate 22 H 18 Blood Pressure 174/125 H 181/118 H 144/102 H Blood Pressure Mean 141 139 116 Pulse Ox 98 99 Oxygen Delivery Method Room Air Room Air 06/10/25 02:04 Temperature 99.3 F H Temperature Source Pulse Rate 109 H Respiratory Rate 18 Blood Pressure 144/102 H Blood Pressure Mean 116 Pulse Ox 99 Oxygen Delivery Method Positive well nourished and well developed General Appearance ED: well developed; Negative for pallor HEENT HEENT Narrative: Normocephalic atraumatic No tongue or lip swelling no oral lesions no airway edema or compromise No signs of infection noted in the posterior pharynx Eyes PERRL and EOMs intact bilaterally General Eye ED: Negative for scleral icterus Neck supple Neck Narrative: No nuchal rigidity or meningeal signs Resp normal respiratory effort and clear to auscultation bilaterally Cardio regular rhythm Rate: tachycardic and other Other Details: Tachycardic rate with regular rhythm No murmurs rubs or gallops Radial and carotid pulses are equal and symmetric GI non-distended and no masses GI Narrative: Soft and nondistended with hyperactive bowel sound There is mild diffuse pain with palpation without voluntary guarding or rigidity No pulsatile mass or fluid wave Auscultation: hyperactive bowel sounds Palpation: soft Extremity Extremity Narrative: Patient has track huff in the upper extremity consistent with history of IV drug use but no signs of secondary infection such as abscess or cellulitis All compartments are soft and compressible going against compartment syndrome Neuro oriented x3, CN's II-XII intact bilaterally and no sensory deficits noted Sensorium / Orientation: alert Motor Exam: strength 5/5 throughout Psych mental status grossly normal Skin no rashes or lesions noted Skin Narrative: Track huff to the extremities without secondary findings of infection as documented above General Skin Exam: Negative for jaundice or pallor MDM MDM MDM Narrative Medical decision making narrative: Patient arrived to ER hypertensive and tachycardic and this correlates with his history and exam showing findings of opioid withdrawal. Patient was informed that opioid drawl is not life-threatening but as he is experiencing symptoms andis requesting detox basic labs will be obtained in order to rule out acute kidney injury or clinically significant electrolyte abnormality. Blood work showed leukocytosis at 15.7 but this is most likely stress response from the withdrawal as his physical exam does not reveal any overt signs of infection. Talk screen is positive for opiates as well as methamphetamines and marijuana. Because he was displaying withdrawal symptoms he was given IV fluids IV BenadrylCompazine and oral clonidine. In order to continue treatment for withdrawal thehospitalist was contacted and he agrees to accept the patient to the floor for continued monitoring and treatment of his opioid use History & Record Review Discussion w/independent historian: Patient Lab Data Attestation: I reviewed the patient's lab results. Labs: Laboratory Results - last 24 hr 06/10/25 01:22 WBC 15.7 H RBC 4.93 Hgb 14.3 Hct 42.1 MCV 85.4 MCH 29.0 MCHC 34.0 RDW Std Deviation 45.9 H RDW Coeff of Marilynn 14.8 H Plt Count 705 H MPV 9.7 Immature Gran % (Auto) 0.300 Neut % (Auto) 78.6 H Lymph % (Auto) 16.8 L Bradley % (Auto) 3.8 Eos % (Auto) 0.1 Baso % (Auto) 0.4 Absolute Neuts (auto) 12.3 H Absolute Lymphs (auto) 2.64 Nucleated RBC % 0 Sodium 142 Potassium 4.1 Chloride 103 Carbon Dioxide 21.8 Anion Gap 17 H BUN 17 Creatinine 1.22 H Estim Creat Clear Calc 97.16 Est GFR (MDRD) Non-Af 77 BUN/Creatinine Ratio 14.1 Glucose 108 H Calcium 10.0 Total Bilirubin 0.57 AST 25 ALT 13 Alkaline Phosphatase 107 Total Protein 8.4 Albumin 4.6 Globulin 3.8 Albumin/Globulin Ratio 1.2 Urine Opiates Screen PRESUMPTIVE POSITIVE U Buprenorphine Qual NEGATIVE Ur Oxycodone Screen NEGATIVE Urine Methadone Screen NEGATIVE Urine Fentanyl Screen PRESUMPTIVE POSITIVE Ur Barbiturates Screen NEGATIVE Ur Phencyclidine Scrn NEGATIVE Ur Amphetamines Screen PRESUMPTIVE POSITIVE U Benzodiazepines Scrn NEGATIVE Urine Cocaine Screen NEGATIVE U Cannabinoids Screen PRESUMPTIVE POSITIVE Ethyl Alcohol < 10.1 Management Discussion w/another healthcare provider: Hospitalist Discharge Plan Dx/Rx/DC Orders Clinical Impression: Opioid abuse, IVDU (intravenous drug user), Opioid withdrawal, Desire for detoxification Disposition Disposition: Acute Care Hospital [facility] What to do if you have Problems For any increased pain, shortness of breath, bleeding, nausea or vomiting, chestpain, or any unexpected problems, contact your Primary Care Provider. Call [facility] ([phone]) or report to the closest Emergency Room. Call 911 if necessary. 06/10/25 0225 <Electronically signed by Marvin Kelly DO> Cosigner Signature (if applicable): CC: No Primary Care Physician ~ Signed [facility] Work Phone: Evaluation note* Diagnosis GERD without esophagitis Esophageal reflux hx IV drug Other, mixed, or unspecified nondependent drug abuse, unspecified documented in this encounter [facility]* Diagnosis Blurred vision, left eye- Primary Other specified visual disturbances documented in this encounter [facility] note* Diagnosis Abrasion of left cornea, initial encounter- Primary Corneal edema of left eye documented in this encounter [facility] note* Diagnosis Opioid type dependence, continuous (HCC)- Primary Opioid type dependence, continuous documented in this encounter [facility] [place] note* Diagnosis Opioid type dependence, continuous (HCC)- Primary Opioid type dependence, continuous documented in this encounter [facility] note* Diagnosis Opioid dependence in remission (HCC) Opioid type dependence, in remission documented in this encounter [facility] [place] note* Diagnosis Opioid dependence in remission (HCC)- Primary Opioid type dependence, in remission documented in this encounter [facility] [place] note* Diagnosis Opioid type dependence, continuous (HCC) Opioid type dependence, continuous documented in this encounter [facility] for referral (narrative)No reason for referral information availableWGalion [facility] Work Phone: Summary Purpose Family History No Family History Records FoundNo Family History Records FoundNo Family History Records FoundNo Family History Records FoundNo Family History Records Found Advance Directives Advance Directive Response Recorded Date/ Time Do you have a Healthcare Power of Picture Framer? No June 10, 2025 12:49am Chief Complaint and Reason for Visit Chief Complaint Admit Date HEROIN June 10, 2025 2:07 am Reason for Visit Admit Date Desire for detoxification June 10 2:07am Fever June 10, 2025 2:07 am IVDU (intravenous drug user) June 10, 2025 2:07am Leukocytosis June 10, 2025 2:07 am Opioid abuse June 10, 2025 2:07 am Opioid withdrawal June 10, 2025 2:07 am Overweight (BMI 25.0-29.9) June 10 2:07am Polysubstance abuse June 10, 2025 2:07 am Tobacco abuse June 10, 2025 2:07 am Additional Source Comments (unrecognized sect ion and content) No Status Records FoundNo Status Records FoundNo Status Records FoundNo Status Records FoundNo Status Records Found INFORMATION SOURCE (unrecogn ized section and content) DATE CREATED AUTHOR 05/18/2018 [facility] ([place]) DATE CREATED AUTHOR AUTHOR'S ORGANIZ ATION 09/03/2021 [facility] [place] DATE CREATED AUTHOR AUTHOR'S ORGANIZ ATION 01/08/2022 [facility] DATE CREATED AUTHOR AUTHOR'S ORGANIZ ATION 04/01/2022 [facility] DATE CREATED AUTHOR AUTHOR'S ORGANIZ ATION 09/19/2024 [facility] Source Comments (unrecognize d section and content) In the event this informatio n is protected by the Federal Confidentiality of Alcohol and Drug Abuse Patient Records regulations: The Federal rules restrict any use of the information to criminally investigate or prosecute any alcohol or drug abuse patient.[facility] the event this information is protected by the Federal Confidentiality of Alcohol and Drug Abuse Patient Records regulations: The Federal rules restrict any use of the information to criminally investigate or prosecute any alcohol or drug abuse patient.[facility] the event this information is protected by the Federal Confidentiality of Alcohol and Drug Abuse Patient Records regulations: The Federal rules restrict any use of the information to criminally investigate or prosecute any alcohol or drug abuse patient.[facility] Reason for Visit (unrecogniz ed section [...] be seen closer to his home in [place] as transportation is cited for missed visits. Referred to [facility] Reason Onset Date Comments Med Refill 09/10/2024 buprenorphine-na loxone (Suboxone) 8-2 MG per sublingual film Reason Onset Date Comments Medication Problem 04/30/2024 Care Teams (unrecognized sec tion and content) Chore Worker Relationship Specialty Start Date End Date Aylin Olson PA-C [address] [place] [address] PCP - General Family Practice 12/14/16 Chore Worker Relationship Specialty Start Date End Date Aylin Olson PA-C [address] [place] [address] PCP - General Family Practice 12/14/16 Team Status: Active Member Role/Relationship Status Dates No Primary Care Physician Primary Care Provider Active Team Status: Active Member Role/Relationship Status Dates Dr. Marvin Kelly , DO Emergency Provider Active Start: June 10, 2025 No Primary Care Physician Primary Care Provider Active Start: June 10, 2025 Dr. Saran Britt , DO Admit Provider Active Start: June 10, 2025 Dr. Saran Britt , DO Attending Provider Active Start: June 10, 2025 Goals (unrecognized section and content) Goals may be documented in a n alternate section FOR RECORDS PERTAINING TO PATIENTS WHO ARE [...] BE BASED ON THE PRIMARY CLINICAL RECORDS. [facility]. provides no warranty or guarantee of the accuracy or completeness of information in this document.
[2025-06-10 03:52] LABS: Urine Bilirubin Dipstick 1 mg/dL (Negative)
[2025-06-10] MEDS: 0.9% Normal Saline (1000mL) 1,000 ML 150 ML IV ×2 (03:58→10:48)
--- NOTE | 2025-06-10 04:20 | RAD_ITS ---
PROCEDURE: CHEST 1 VIEW (PORTABLE) 06/10/2025 REASON FOR EXAM: LEUKOCYTOSIS AND IVDA. EVAL FOR PNA. TECHNIQUE: Frontal view of the chest. COMPARISON: No FINDINGS: Mild scoliosis. Well inflated lungs. No consolidation, effusion or pneumothorax. RAD/Chest 1 View (Portable) IMPRESSION: No acute findings Reading Location: [place] [address]
[2025-06-10] MEDS: proMETHazine 25 MG/ML Syringe 12.5 MG IM (06:08)
[2025-06-10] MEDS: hydrOXYzine PAM 25 MG Capsule 50 MG PO ×2 (06:12→18:40)
[2025-06-10 07:54] LABS: Prothrombin Time (Protime)PT. 13.7 SECONDS (11.7-14.9)
--- NOTE | 2025-06-10 08:05 | PCM.PN.HOSP ---
Reason for Visit Chief Complaint: Polysubstance Withdrawal with Desire for Detoxification. Subjective Subjective Patient is a 39-year-old male with history of polysubstance dependence admitted with acute opioid withdrawal Objective Data Objective Data Vital Signs: Vital Signs Temp Pulse Resp BP Pulse Ox O2 Del Method 98.4 F 104 H 16 184/114 H 100 Room Air 06/10/25 03:29 06/10/25 03:46 06/10/25 03:29 06/10/25 03:29 06/10/25 03:29 06/10/25 03:46 Oxygen Delivery Method Room Air Weight: 95.8 kg Body Mass Index (BMI) 26.4 Intake & Output: Intake and Output for Last 24 Hours 06/08/25 06/09/25 06/10/25 23:59 23:59 23:59 Intake Total 1000 / 1000 Balance 1000 / 1000 Lab / Micro Data 06/10/25 01:22 06/10/25 01:22 Labs: Laboratory Results - last 24 hr 06/10/25 01:22: WBC 15.7 H, RBC 4.93, Hgb 14.3, Hct 42.1, MCV 85.4, MCH 29.0, MCHC 34.0, RDW Std Deviation 45.9 H, RDW Coeff of Marilynn 14.8 H, Plt Count 705 H, MPV 9.7, Immature Gran % (Auto) 0.300, Neut % (Auto) 78.6 H, Lymph % (Auto) 16.8 L, [place] % (Auto) 3.8, Eos % (Auto) 0.1, Baso % (Auto) 0.4, Absolute Neuts (auto) 12.3 H, Absolute Lymphs (auto) 2.64, Nucleated RBC % 0, Sodium 142, Potassium 4.1, Chloride 103, Carbon Dioxide 21.8, Anion Gap 17 H, BUN 17, Creatinine 1.22 H, Estim Creat Clear Calc 97.16, Est GFR (MDRD) Non-Af 77, BUN/Creatinine Ratio 14.1, Glucose 108 H, Calcium 10.0, Magnesium 1.8, Total Bilirubin 0.57, AST 25, ALT 13, Alkaline Phosphatase 107, Total Protein 8.4, Albumin 4.6, Globulin 3.8, Albumin/Globulin Ratio 1.2, Urine Color Joan, Urine Clarity Clear, Urine pH 6.0, Ur Specific [place] 1.020, Urine Protein 100 H, Urine Glucose (UA) 50 H, Urine Ketones 5 H, Urine Occult Blood 10 H, Urine Nitrite Negative, Urine Bilirubin 1 H, Urine Urobilinogen 1 H, Ur Leukocyte Esterase 25 H, Urine RBC 0 SEEN, Urine WBC 0-5 SEEN, Ur Squamous Epith Cells 0 SEEN, Urine Bacteria 1+, Urine Mucus 0 SEEN, Urine Opiates Screen PRESUMPTIVE POSITIVE, U Buprenorphine Qual NEGATIVE, Ur Oxycodone Screen NEGATIVE, Urine Methadone Screen NEGATIVE, Urine Fentanyl Screen PRESUMPTIVE POSITIVE, Ur Barbiturates Screen NEGATIVE, Ur Phencyclidine Scrn NEGATIVE, Ur Amphetamines Screen PRESUMPTIVE POSITIVE, U Benzodiazepines Scrn NEGATIVE, Urine Cocaine Screen NEGATIVE, U Cannabinoids Screen PRESUMPTIVE POSITIVE, Ethyl Alcohol < 10.1 06/10/25 05:56: PT 13.7, INR 1.0, Phosphorus 3.1, TSH 0.552 Radiography Diagnostic Testing: Radiology Impression Chest X-Ray 06/10/25 04:20 IMPRESSION: No acute findings Reading Location: [place] [address] Physical Exam Narrative GENERAL: cooperative HEENT: Atraumatic; normocephalic EYES; Anicteric, Normal Conjunctiva NECK; supple, normal thyroid, RESPIRATORY: Diminished to auscultation CARDIOVASCULAR: Regular S1 S2, GI: soft, normoactive bowel sounds, : No Renal angle tenderness; EXTREMITIES: No edema, no clubbing, MUSCULOSKELETAL: no muscle wasting NEURO: Awake; no lateralizing signs. SKIN: No Rash PSYCH; Flat affect Assessment & Plan Assessment/Plan (1) Opioid withdrawal: PLAN: Plan Patient is a 39-year-old male with history of polysubstance dependence admitted with acute opioid withdrawal 1. 1. Acute opioid withdrawal - Patient has been admitted to regular nursing floor, managed buprenorphine taper along with other adjunctive medications for medical stabilization 2. Polysubstance dependence ? Patient UDS was positive for fentanyl amphetamine and cannabis. Counseled on cessation 3. Tobacco dependence ? Consider cessation 4. History of hep C ? Patient to follow-up with primary care physician for subsequent care 5. DVT prophylaxis ? Low risk patient had been started on enoxaparin at admission discussed Time spent in the patient's overall evaluation,decision-making process, review of diagnostic data, adjustment of management, discussion with other providers, nursing nursing and ancillary staff involved in patient's care documentation, 25 Minutes Charges/Coding Visit Charges Inpatient E&M: 89216 PROLNG IP/OBS E/M EA 15 MIN Multi Select Codes Visit Charges Visit Charges: 83237 PROLNG IP/OBS E/M EA 15 MIN
[2025-06-11] VITALS (10 sets, daily range): BP systolic 152–200; BP diastolic 85–118; PULSE 105–131; RESP 16–18; TEMP 36.8–37.2; O2SAT 95–100; BMI 26.4
[2025-06-11] MEDS: hydrOXYzine PAM 25 MG Capsule 50 MG PO ×2 (03:52→15:14)
[2025-06-11 06:27] LABS: Hematocrit 39.9 % (40-54); Hemoglobin 13.2 g/dL (13.0-16.5); Immature Granulocytes Count 0.030 X10^3/uL (0.0-0.0); Mean Corp Hgb Conc 33.1 g/dL (32-36); Mean Corpuscular Volume 87.3 fL (80-94); Mean Platelet Vol. 9.5 fl (6.2-12.0); NRBC Flagged by Analyzer 0 % (0-5); POSITIVE DIFFERENTIAL YES; POSITIVE MORPHOLOGY YES; Platelet Count 564 K/mm3 (150-450); RBC Distribution Width CV 15.2 % (11.6-14.6); RBC Distribution Width SD 48.8 fl (35.1-43.9); Red Blood Count 4.57 M/mm3 (4.6-6.2); White Blood Count 11.9 K/mm3 (4.4-11.0)
[2025-06-11 06:30] LABS: Differential Indicated SCAN CRITERIA MET
[2025-06-11 07:00] LABS: AST(SGOT) 21 U/L (<=37); Alanine Aminotransfer ALT/SGPT 10 U/L (<=46); Albumin, Serum 3.8 g/dL (3.5-5.0); Alkaline Phosphatase 90 U/L (40-129); Anion Gap 12 (5-15); BUN 12 mg/dL (4-19); BUN/Creat Ratio 12.7 RATIO (10-20); Calcium,Total 9.4 mg/dL (7.6-11.0); Carbon Dioxide 25.4 mmol/L (21.0-32.0); Chloride 104 mmol/L (98-108); Estimated Creatinine Clearance 127.46 ml/min (50-250); Globulin 3.2 g/dL (2.2-4.2); Glucose 113 mg/dL (70-99); Potassium 4.0 mmol/L (3.3-5.1)
[2025-06-11 07:05] LABS: Reactive Lymphocyte RARE
--- NOTE | 2025-06-11 07:44 | PCM.PN.HOSP ---
Reason for Visit Chief Complaint: Polysubstance Withdrawal with Desire for Detoxification. Subjective Subjective Patient seen much more awake tolerating the Subutex taper as well so far. Patient blood pressure however markedly elevated 172/112. Added amlodipine to patient treatment with Objective Data Objective Data Vital Signs: Vital Signs Temp Pulse Resp BP Pulse Ox O2 Del Method 98.2 F 105 H 16 175/112 H 97 Room Air 06/11/25 03:46 06/11/25 03:46 06/11/25 03:46 06/11/25 03:46 06/11/25 03:46 06/11/25 03:46 Oxygen Delivery Method Room Air Weight: 95.9 kg Body Mass Index (BMI) 26.4 Intake & Output: Intake and Output for Last 24 Hours 06/09/25 06/10/25 06/11/25 23:59 23:59 23:59 Intake Total 3050 / 3250 400 / 400 Balance 3050 / 3250 400 / 400 Lab / Micro Data 06/11/25 05:55 06/11/25 05:55 Labs: Laboratory Results - last 24 hr 06/10/25 05:56: PT 13.7, INR 1.0, Phosphorus 3.1 06/11/25 05:55: WBC 11.9 H, RBC 4.57 L, Hgb 13.2, Hct 39.9 L, MCV 87.3, MCH 28.9, MCHC 33.1, RDW Std Deviation 48.8 H, RDW Coeff of Marilynn 15.2 H, Plt Count 564 H, MPV 9.5, Immature Gran % (Auto) 0.300, Neut % (Auto) 41.4 L, Lymph % (Auto) 50.8 H, [place] % (Auto) 5.4, Eos % (Auto) 1.4, Baso % (Auto) 0.7, Absolute Neuts (auto) 4.9, Absolute Lymphs (auto) 6.06 H, Nucleated RBC % 0, Atypical Lymphocytes RARE, Reactive Lymphocytes RARE, Sodium 142, Potassium 4.0, Chloride 104, Carbon Dioxide 25.4, Anion Gap 12, BUN 12, Creatinine 0.93, Estim Creat Clear Calc 127.46, Est GFR (MDRD) Non-Af 107, BUN/Creatinine Ratio 12.7, Glucose 113 H, Calcium 9.4, Total Bilirubin 0.23, AST 21, ALT 10, Alkaline Phosphatase 90, Total Protein 7.0, Albumin 3.8, Globulin 3.2, Albumin/Globulin Ratio 1.2 Physical Exam Narrative GENERAL: cooperative HEENT: Atraumatic; normocephalic EYES; Anicteric, Normal Conjunctiva NECK; supple, normal thyroid, RESPIRATORY: Diminished to auscultation CARDIOVASCULAR: Regular S1 S2, GI: soft, normoactive bowel sounds, : No Renal angle tenderness; EXTREMITIES: No edema, no clubbing, MUSCULOSKELETAL: no muscle wasting NEURO: Awake; no lateralizing signs. SKIN: No Rash PSYCH; Flat affect Assessment & Plan Assessment/Plan (1) Opioid withdrawal: PLAN: Plan Patient is a 39-year-old male with history of polysubstance dependence admitted with acute opioid withdrawal 1. 1. Acute opioid withdrawal - Patient has been admitted to regular nursing floor, managed buprenorphine taper along with other adjunctive medications for medical stabilization 2. Polysubstance dependence ? Patient UDS was positive for fentanyl amphetamine and cannabis. Counseled on cessation 3. Tobacco dependence ? Consider cessation 4. History of hep C ? Patient to follow-up with primary care physician for subsequent care 5. DVT prophylaxis ? Low risk patient had been started on enoxaparin at admission discussed 6. Elevated blood pressure ? Patient does not have a known diagnosis of hypertension with patient blood pressure remained persistently high decision was made to start patient on amlodipine 10 mg Time spent in the patient's overall evaluation,decision-making process, review of diagnostic data, adjustment of management, discussion with other providers, nursing nursing and ancillary staff involved in patient's care documentation, 35 Minutes Charges/Coding Visit Charges Inpatient E&M: 51708 Subs Hosp L2
--- NOTE | 2025-06-11 11:07 | ADDICTION ---
This publicity writer met with PT to conduct ASAM, MSE, AUDIT, DUDIT assessments and to plan for d/c. PT A+Ox4 and participated actively. All assessments completed. PT plans to f/u with follow-up treatment services, however she wanted to look into Suboxone treatment options. He did not want residential tx. Pt has been to detox 15+ times with minimal follow up. PT reports she will follow up once she is home. PT did not indicate a need for transportation post d/c from [facility].
[2025-06-12 05:01] VITALS: BMI 26.2
[2025-06-12 05:09] VITALS: BP 157/112; PULSE 121
[2025-06-12 05:12] VITALS: BP 157/112; PULSE 121; RESP 16; TEMP 36.8; O2SAT 98
--- NOTE | 2025-06-12 09:24 | PCM.DC.SUM ---
Providers Date of Admission: 06/10/25 Date of Discharge: 06/12/25 Primary Care Physician: No Primary Care Phys Reason For Visit: ACUTE POLYSUBSTANCE WITHDRAWL WITH LEUKOCYTOSIS Diagnosis Discharge Diagnosis (1) Opioid withdrawal: Status: Acute Code(s): F11.93 - Opioid use, unspecified with withdrawal Plan Patient is a 39-year-old male with history of polysubstance dependence admitted with acute opioid withdrawal 1. 1. Acute opioid withdrawal - Patient has been admitted to regular nursing floor, managed buprenorphine taper along with other adjunctive medications for medical stabilization ? 06/12/2025; patient was deemed stable for discharge 2. Polysubstance dependence ? Patient UDS was positive for fentanyl amphetamine and cannabis. Counseled on cessation 3. Tobacco dependence ? Consider cessation 4. History of hep C ? Patient to follow-up with primary care physician for subsequent care 5. DVT prophylaxis ? Low risk patient had been started on enoxaparin at admission discussed 6. Elevated blood pressure ? Patient does not have a known diagnosis of hypertension with patient blood pressure remained persistently high decision was made to start patient on amlodipine 10 mg Time spent in the patient's overall evaluation,decision-making process, review of diagnostic data, adjustment of management, discussion with other providers, nursing nursing and ancillary staff involved in patient's care documentation, 35 Minutes Medications at Discharge Home Medications buprenorphine 8 mg-naloxone 2 mg sublingual film 1 ea sublingual BID 06/10/25 amlodipine 10 mg tablet 10 mg PO DAILY #60 tabs 06/12/25 clonidine HCl 0.1 mg tablet 0.1 mg PO BID PRN PRN insomnia #120 tabs 06/12/25 losartan 50 mg tablet 50 mg PO DAILY #60 tabs 06/12/25 Physical Exam Narrative GENERAL: cooperative HEENT: Atraumatic; normocephalic EYES; Anicteric, Normal Conjunctiva NECK; supple, normal thyroid, RESPIRATORY: Diminished to auscultation CARDIOVASCULAR: Regular S1 S2, GI: soft, normoactive bowel sounds, : No Renal angle tenderness; EXTREMITIES: No edema, no clubbing, MUSCULOSKELETAL: no muscle wasting NEURO: Awake; no lateralizing signs. SKIN: No Rash PSYCH; Flat affect Weight / BMI Weight Weight: 95.7 kg Body Mass Index (BMI) 26.2 ABG / Lab / Microbiology Data 06/11/25 05:55 06/11/25 05:55 D/C Instructions Discharge Activity: Return to Normal Activity Call your doctor if you observe: Fever of 101 or Higher, Shortness of breath, Fainting spells and Chest pain DC O2, CPAP, BIPAP Needs Home O2 Discharge instructions: No Meaningful Use Info Meaningful Use Meaningful Use Diagnoses (Choose all that apply): None applicable Discharge Plan Admission Admit Date/Time: 06/10/25 02:51 Attending Provider: Saran Duvall Primary Care Provider: Care Physician,No Primary Consulting Providers: Saran Britt Discharge Orders/Prescriptions Prescriptions: New amlodipine 10 mg Tablet 10 mg PO DAILY Qty: 60 0RF losartan 50 mg tablet 50 mg PO DAILY Qty: 60 0RF Continued buprenorphine-naloxone 8-2 mg film 1 ea sublingual BID clonidine HCl 0.1 mg tablet 0.1 mg PO BID PRN PRN (Reason: insomnia) Qty: 120 0RF Discontinued cephalexin 500 MG capsule 500 mg PO Q6 Qty: 40 0RF Referrals / Follow Up: Care Physician,No Primary [Primary Care Provider] - Within 2 Weeks Disposition Disposition (needs filled in before D/C Order can be placed): Home, Self Care Charges/Coding Visit Charges Inpatient E&M: 96079 Disch Hosp >30min
[2025-06-12 10:00] VITALS: BP 154/99; PULSE 121; RESP 18; TEMP 36.7; O2SAT 97
[2025-06-12 10:55] VITALS: BP 154/99; PULSE 98; RESP 18; TEMP 36.7; O2SAT 96
== END 2025-06-12 12:45 | disposition home or self-care (01) | DRG 773 ==
LOC: ED 06-10 01:56 → MS3 06-10 03:44
PROVIDERS: Admitting Provider Internal Medicine; Emergency Provider Emergency Medicine; Visit Provider Internal Medicine
DX: F11.23 Opioid dependence with withdrawal (principal); E66.3 Overweight; F19.239 Other psychoactive substance dependence with withdrawal, unspecified; F17.210 Nicotine dependence, cigarettes, uncomplicated; Z68.26 Body mass index [BMI] 26.0-26.9, adult; Y90.0 Blood alcohol level of less than 20 mg/100 ml
CPT/HCPCS: 36415; 71045; 80053; 80307; 81001; 82077; 83735; 84100; 84443; 85025; 85610; 99284; 99406; A4216